=== PATIENT | female | born 1945 | race Caucasian/White ===

== ENCOUNTER 2016-08-23 20:17 | Emergency (ER) | payer MEDICARE ==
[~2016-08-23] VITALS: Ht 157.5 cm; Wt 62.0 kg
[~2016-08-23 20:17] MED LIST: ACETIC ACID2 % OT; ACYCLOVIR400 MG PO; ACYCLOVIR800 MG OR; ACYCLOVIR800 MG PO; AMLODIPINE2.5 MG PO; ARAVA20 MG PO; ATENOLOL25 MG PO; ATENOLOL50 MG PO; AZITHROMYCIN250 MG PO; AZITHROMYCIN500 MG OR; BACLOFEN10 MG PO; BENADRYL 50MG C50 MG PO; BENZONATATE200 MG PO; BIOTIN1 MG; BIOTIN1000 MCG PO; BUSPIRONE HCL7.5 MG PO; BUSPIRONE15 MG PO; BUSPIRONE7.5 MG PO; CAPSAICIN 0.025% EX; CEPHALEXIN500 M1 PO; CHLORTHALID25 MG PO; CIPRO500 MG PO; CIPROFLOXACN500 MG PO; CLARITHROMYC500 MG PO; CLARITIN10 M1 PO; CLEOCIN150 MG PO; CYANOCOBALAM1000 MCG IJ; CYCLOBENZAPR10 MG OR; CYCLOBENZAPR10 MG PO; CYCLOBENZAPR5 MG PO; CYMBALTA60 MG PO; DEPO-MEDROL40 MG/ML IM; DEPO-MEDROL80 MG/ML IM; EC-NAPROSYN375 MG PO; ERYTHROCIN250 MG OR; ERYTHROMYCIN250 MG PO; FERROUS SULF325 M1 PO; FLEXERIL OR; FLEXERIL PO; FLEXERIL10 MG PO; FLEXERIL5 M1 PO; FLONASE NASAL50 MCG; FLONASE NASAL50 MCG NAB; FLORASTOR250 M1 PO; FLUARIX QUADRIV1 IN1 IM; FLUTICASONE50 MCG; FOLIC ACID1 MG PO; FOLIC ACID5 MG PO; GABAPENTIN300 MG OR; GABAPENTIN300 MG PO; HUMIR1; HUMIRA SC; HYDROCHLORO25 MG/TAB PO; HYDROCHLOROT12.5 MG PO; HYDROCHLOROT25 MG PO; HYDROCO/APAP1 TA9 PO; HYDROXYCHLOR200 M1 PO; HYDROXYZ HCL25 MG PO; K-PHO1 PO; KEFLEX500 M1 PO; KEFLEX500 MG PO; KENALOG-4040 MG/ML IM; KETOROLAC60 MG/2 ML IJ; KETOROLAC60 MG/2 ML IM; KLOR-CON M2020 MEQ PO; KLOR-CON20 MEQ PO; LASIX 10 MG10 MG/TA1 PO; LEFLUNOMIDE20 MG PO; LEVAQUIN500 MG PO; LEVAQUIN750 MG PO; LEXAPRO10 MG OR; LEXAPRO10 MG PO; LISINOPRIL10 MG PO; LISINOPRIL20 MG PO; LISINOPRIL30 MG PO; LISINOPRIL5 MG PO; LORTAB 10 PO; LORTAB 1010 MG PO; LORTAB 5/3255 MG PO; LORTAB5 PO; MACROBID100 MG PO; MAG OXIDE400 MG PO; MECLIZINE25 MG PO; MEDDOSEPAK OR; MEDDOSEPAK PO; METFORMIN1000 MG OR; METFORMIN1000 MG PO; METHOTREXATE2.5 MG; METHOTREXATE25 MG/ML IJ; METHYLPRED4 M2 PO; METHYLPRED4 MG PO; MUCINEX600 MG OR; MUCINEX600 MG PO; MUPIROCIN2 % EX; NAPROSYN375 MG PO; NAPROSYN500 MG OR; NAPROSYN500 MG PO; NAPROXEN SOD500 MG PO; NAPROXEN500 MG PO; NEURONTIN600 MG PO; NITROFURANTOIN100 M1 PO; OMEPRAZOLE20 MG PO; OXYBUTYNIN5 M1 PO; OXYBUTYNIN5 MG PO; PERCOCET 5/325M1 TAB OR; PHENERGAN12.5 MG/TA PO; POTASSIUM CHLO20 MEQ PO; PRAVASTATIN10 MG PO; PREDNISONE10 MG PO; PREDNISONE20 MG PO; PREDNISONE5 MG; PREDNISONE5 MG PO; PRILOSEC20 MG PO; PRILOSEC40 MG PO; PROAIR HFA IN; PROMETHAZINE25 M1 OR; RAYOS2 MG PO; ROBITUSSIN AC10 ML OR; SOLU-MEDROL125 MG IM; SULFACET SOD10 % OP; SULFASALAZIN500 M1 PO; TENORMIN50 MG PO; TIZANIDINE2 MG PO; TORADOL30 MG/VIAL IJ; TRAMADOL HCL50 MG PO; TRAZODONE50 MG PO; TREXALL10 MG PO; TRIAMCINOLON0.11 EX; ULTRAM50 M1 OR; ULTRAM50 M1 PO; VALTREX500 MG PO; XELJANZ5 MG PO; ZITHROMAX250 MG PO; ZITHROMAX500 MG PO; ZOLOFT100 MG OR; ZOLOFT100 MG PO; ZOVIRAX200 MG OR; ZOVIRAX400 MG PO; ZOVIRAX5 % EX; ZPAK OR; ZPAK PO; ZYRTEC10 MG PO; [UNRECOGNIZED DRUG - OTHER] EX; [UNRECOGNIZED DRUG - OTHER] SC
[2016-08-23 20:56] LABS: INFLUENZA A NONE DETECTED (NONE DETECT); INFLUENZA B NONE DETECTED (NONE DETECT)
[2016-08-23] MEDS ORDERED: ZPAK PO (21:07)
[2016-08-23 21:18] VITALS: BP 133/80
== END 2016-08-23 21:18 | disposition home or self-care (01) ==
LOC: ED 20:17
PROVIDERS: Emergency Medicine
DX: J02.9 Acute pharyngitis, unspecified (principal); R50.9 Fever, unspecified; R51 Headache

== ENCOUNTER 2016-09-26 20:55 | Emergency (ER) | payer MEDICARE ==
[~2016-09-26] VITALS: Ht 157.5 cm; Wt 63.4 kg
[2016-09-26 22:27] LABS: URINE BILIRUBIN - DIPSTICK NEGATIVE (NEGATIVE); URINE BLOOD DIPSTICK NEGATIVE (NEGATIVE); URINE CLARITY HAZY; URINE COLOR YELLOW; URINE GLUCOSE - DIPSTICK NEGATIVE (NEGATIVE); URINE KETONE NEGATIVE (NEGATIVE); URINE LEUK ESTERASE NEGATIVE (NEGATIVE); URINE NITRITE - DIPSTICK POSITIVE (Negative); URINE PH 5.5 (4.5-8.0); URINE PROTEIN - DIPSTICK NEGATIVE (NEG-TRACE); URINE SPECIFIC GRAVITY >=1.030; URINE UROBILINOGEN - DIPSTICK 0.2 E.U./dL (0.2)
[2016-09-26 22:33] LABS: URINE BACTERIA MODERATE hpf; URINE CALCIUM OXALATE CRYSTALS MODERATE lpf; URINE RBC 0-2 RBC/hpf (0-5); URINE SQUAMOUS EPITHELIAL CELL FEW EPI/hpf (0-FEW)
[2016-09-26] MEDS ORDERED: Levaquin PO (22:52)
[2016-09-26 23:20] VITALS: BP 133/78
== END 2016-09-26 23:20 | disposition home or self-care (01) ==
LOC: ED 20:55
PROVIDERS: Emergency Medicine
DX: N39.0 Urinary tract infection, site not specified (principal); E11.9 Type 2 diabetes mellitus without complications; F32.9 Major depressive disorder, single episode, unspecified; F41.9 Anxiety disorder, unspecified; M06.9 Rheumatoid arthritis, unspecified

== ENCOUNTER 2016-10-27 13:55 | Emergency (ER) | payer MEDICARE ==
[~2016-10-27] VITALS: Ht 157.5 cm; Wt 70.0 kg
[~2016-10-27 13:55] MED LIST changes: +Levaquin PO
[2016-10-27] MEDS ORDERED: NORCO1 TA1 PO (14:29)
[2016-10-27 14:41] VITALS: BP 125/58
[2016-10-27] MEDS ORDERED: MACROBID100 MG PO (14:53)
== END 2016-10-27 15:01 | disposition home or self-care (01) ==
LOC: ED 13:55
DX: G89.29 Other chronic pain (principal); M54.5 Low back pain; E11.9 Type 2 diabetes mellitus without complications; F32.9 Major depressive disorder, single episode, unspecified; F41.9 Anxiety disorder, unspecified; M06.9 Rheumatoid arthritis, unspecified

== ENCOUNTER 2016-12-20 16:16 | Observation (INO) | payer MEDICARE ==
[~2016-12-20] VITALS: Ht 157.5 cm; Wt 52.0 kg
[~2016-12-20 16:16] MED LIST changes: +NORCO1 TA1 PO
[2016-12-20 17:32] LABS: HEMOGLOBIN 9.4 g/dl (12.0-16.0); IMMATURE GRANULOCYTES 0.6 % (0.0-1.0); MEAN CELL VOLUME 81.3 fL CALC (80.0-100.0); MEAN CORPUSCULAR HGB 25.5 pG CALC (26.0-32.0); MEAN CORPUSCULAR HGB CONC 31.3 g/L CALC (32.0-36.0); NEUT# 3.88 thou/uL (2.00-7.15); RED BLOOD COUNT 3.69 mill/uL (4.20-5.60); RED CELL DISTRI WIDTH 17.2 % (11.5-15.5)
[2016-12-20 17:40] LABS: URINE BACTERIA MANY hpf; URINE BILIRUBIN - DIPSTICK NEGATIVE (NEGATIVE); URINE BLOOD DIPSTICK TRACE-INTACT (NEGATIVE); URINE CLARITY CLOUDY; URINE COLOR YELLOW; URINE EPITHELIAL CELLS MANY EPI/hpf (0-FEW); URINE GLUCOSE - DIPSTICK NEGATIVE (NEGATIVE); URINE KETONE NEGATIVE (NEGATIVE); URINE LEUK ESTERASE LARGE (NEGATIVE); URINE NITRITE - DIPSTICK POSITIVE (Negative); URINE PROTEIN - DIPSTICK NEGATIVE (NEG-TRACE); URINE RBC 0-2 RBC/hpf (0-5); URINE UROBILINOGEN - DIPSTICK 0.2 E.U./dL (0.2); URINE WBC 20-50 WBC/hpf (0-5)
[2016-12-20 17:47] LABS: ALBUMIN 3.6 g/dL (3.2-5.0); ALKALINE PHOSPHATASE 62 u/l (38-126); ANION GAP 12 (6-22 (CALC)); BILIRUBIN, TOTAL 0.4 mg/dL (0.0-1.4); BUN 10 mg/dL (8-23); BUN/CREATININE RATIO 11 (12-20 (CALC)); CALCIUM 9.2 mg/dL (8.4-10.2); CARBON DIOXIDE 28 mmol/l (22-30); CHLORIDE 101 mmol/l (95-108); CREATININE 0.9 mg/dL (0.5-1.0); GFR > 60 ML/MIN (>=60 (CALC)); GFR FOR AFR.AMER. > 60 ML/MIN (>=60 (CALC)); GLUCOSE 100 mg/dL (82-115); LIPASE 33 u/l (23-300); POTASSIUM 3.9 mmol/l (3.5-5.1); SGOT/AST 19 u/l (9-36); SGPT/ALT 31 u/l (11-66); SODIUM 137 mmol/l (137-146)
[2016-12-20] MEDS ORDERED: RHEUMATREX2.5 M1 PO (18:40)
[2016-12-20] MEDS ORDERED: BACLOFEN20 MG PO (18:41)
[2016-12-20] MEDS ORDERED: ZESTRIL5 M1 PO (18:42)
[2016-12-20] MEDS ORDERED: ACYCLOVIR400 MG PO (18:43)
[2016-12-20] MEDS ORDERED: BUSPAR5 MG PO (18:44)
[2016-12-20] MEDS ORDERED: FOLIC ACID1 MG PO (18:52)
[2016-12-20] MEDS ORDERED: SERTRALINE50 MG PO (18:53)
[2016-12-20] MEDS ORDERED: IMODIUM2 MG PO (18:54)
[2016-12-20] MEDS ORDERED: TRAZODONE50 MG PO (18:54)
[2016-12-20] MEDS ORDERED: PROAIR HFA108 MCG/AC (18:55)
[2016-12-20] MEDS ORDERED: FLONASE AL50 MCG/ACT (18:55)
[2016-12-20] MEDS ORDERED: CLARITIN10 M1 PO (18:56)
[2016-12-20] MEDS ORDERED: DULCOLAX5 MG PO (18:56)
[2016-12-20 20:30] VITALS: BP 156/68
[2016-12-21 03:55] VITALS: BP 125/61
[2016-12-21 06:02] LABS: HEMATOCRIT 28.9 % (37.0-47.0); HEMOGLOBIN 8.8 g/dl (12.0-16.0); MEAN CELL VOLUME 82.1 fL CALC (80.0-100.0); MEAN CORPUSCULAR HGB CONC 30.4 g/L CALC (32.0-36.0); RED BLOOD COUNT 3.52 mill/uL (4.20-5.60); RED CELL DISTRI WIDTH 17.2 % (11.5-15.5)
[2016-12-21 06:21] LABS: ANION GAP 11 (6-22 (CALC)); BUN 9 mg/dL (8-23); BUN/CREATININE RATIO 11 (12-20 (CALC)); CALCIUM 8.7 mg/dL (8.4-10.2); CARBON DIOXIDE 27 mmol/l (22-30); CHLORIDE 105 mmol/l (95-108); CREATININE 0.8 mg/dL (0.5-1.0); GFR > 60 ML/MIN (>=60 (CALC)); GFR FOR AFR.AMER. > 60 ML/MIN (>=60 (CALC)); GLUCOSE 71 mg/dL (82-115); POTASSIUM 3.8 mmol/l (3.5-5.1); SODIUM 138 mmol/l (137-146)
[2016-12-21 07:46] VITALS: BP 144/71
[2016-12-21] MEDS ORDERED: QUESTRAN4 GM/DOSE PO (09:44)
[2016-12-21] MEDS ORDERED: ESTRIOL VA (09:51)
[2016-12-21] MEDS ORDERED: MACROBID100 MG PO (09:51)
[2016-12-21] MEDS ORDERED: NAPROXEN500 MG PO (09:52)
[2016-12-21 10:04] VITALS: BP 144/71
== END 2016-12-21 10:24 | disposition home or self-care (01) ==
LOC: ED 16:16 → ED-I 18:28 → ED 18:45 → MS2 18:46
PROVIDERS: Family Medicine; ADMIT Internal Medicine; ATTEND Internal Medicine
DX: N39.0 Urinary tract infection, site not specified (principal); E11.9 Type 2 diabetes mellitus without complications; F32.9 Major depressive disorder, single episode, unspecified; F41.9 Anxiety disorder, unspecified; M06.9 Rheumatoid arthritis, unspecified; B96.20 Unspecified Escherichia coli [E. coli] as the cause of diseases classified elsewhere; R32 Unspecified urinary incontinence; I10 Essential (primary) hypertension; K21.9 Gastro-esophageal reflux disease without esophagitis; K52.9 Noninfective gastroenteritis and colitis, unspecified; R19.04 Left lower quadrant abdominal swelling, mass and lump; M15.9 Polyosteoarthritis, unspecified; R42 Dizziness and giddiness; Z16.12 Extended spectrum beta lactamase (ESBL) resistance; Z87.442 Personal history of urinary calculi; Z87.440 Personal history of urinary (tract) infections; Z88.0 Allergy status to penicillin
CPT/HCPCS: G0378

== ENCOUNTER 2017-01-22 01:21 | Emergency (ER) | payer MEDICARE ==
[~2017-01-22] VITALS: Ht 157.5 cm; Wt 52.8 kg
[~2017-01-22 01:21] MED LIST changes: +BACLOFEN20 MG PO; +BUSPAR5 MG PO; +DULCOLAX5 MG PO; +ESTRIOL VA; +FLONASE AL50 MCG/ACT; +IMODIUM2 MG PO; +PROAIR HFA108 MCG/AC; +QUESTRAN4 GM/DOSE PO; +RHEUMATREX2.5 M1 PO; +SERTRALINE50 MG PO; +ZESTRIL5 M1 PO
[2017-01-22] MEDS ORDERED: NAPROXEN500 MG PO (01:48)
[2017-01-22] MEDS ORDERED: TRAZODONE50 MG PO (01:48)
[2017-01-22] MEDS ORDERED: BUSPAR5 MG PO (01:48)
[2017-01-22 01:55] VITALS: BP 161/81
== END 2017-01-22 01:58 | disposition home or self-care (01) ==
LOC: ED 01:21
DX: Z76.0 Encounter for issue of repeat prescription (principal); E11.9 Type 2 diabetes mellitus without complications; M06.9 Rheumatoid arthritis, unspecified; F32.9 Major depressive disorder, single episode, unspecified; F41.9 Anxiety disorder, unspecified; Z87.442 Personal history of urinary calculi

== ENCOUNTER 2017-02-02 13:10 | Day surgery (SDC) | payer MEDICARE ==
[~2017-02-02] VITALS: Ht 157.5 cm; Wt 49.9 kg
[~2017-02-02 13:10] MED LIST changes: +[UNRECOGNIZED DRUG - OTHER] PO
[2017-02-02 15:32] VITALS: BP 207/90
== END 2017-02-02 15:56 | disposition home or self-care (01) ==
LOC: ENDO 13:10 → ORM 15:30 → PO 15:30 → ENDO 15:30 → ORM 16:15
PROVIDERS: ATTEND Internal Medicine Gastroenterology
DX: R13.10 Dysphagia, unspecified (principal); Z53.8 Procedure and treatment not carried out for other reasons

== ENCOUNTER 2017-03-23 00:48 | Emergency (ER) | payer MEDICARE ==
[~2017-03-23] VITALS: Ht 157.5 cm; Wt 51.8 kg
[2017-03-23 03:49] VITALS: BP 175/77
== END 2017-03-23 03:50 | disposition home or self-care (01) ==
LOC: ED 00:48
DX: M06.9 Rheumatoid arthritis, unspecified (principal); M25.562 Pain in left knee; M25.561 Pain in right knee; I10 Essential (primary) hypertension

== ENCOUNTER 2017-09-13 13:36 | Emergency (ER) | payer MEDICARE ==
[~2017-09-13] VITALS: Ht 157.5 cm; Wt 60.0 kg
[~2017-09-13 13:36] MED LIST changes: +BP MED; +ROCEPHIN 1 GM1 GM IV
[2017-09-13 14:36] LABS: URINE BLOOD DIPSTICK NEGATIVE (NEGATIVE); URINE COLOR YELLOW; URINE GLUCOSE - DIPSTICK NEGATIVE (NEGATIVE); URINE KETONE TRACE mg/dL (NEGATIVE); URINE LEUK ESTERASE TRACE (NEGATIVE); URINE NITRITE - DIPSTICK NEGATIVE (Negative); URINE PH 5.5 (4.5-8.0); URINE PROTEIN - DIPSTICK NEGATIVE (NEG-TRACE); URINE SPECIFIC GRAVITY 1.025; URINE UROBILINOGEN - DIPSTICK 0.2 E.U./dL (0.2)
[2017-09-13 14:39] LABS: HEMOGLOBIN 11.6 g/dl (12.0-16.0); IMMATURE GRANULOCYTES 0.8 % (0.0-1.0); MEAN CELL VOLUME 86.3 fL CALC (80.0-100.0); MEAN CORPUSCULAR HGB 27.8 pG CALC (26.0-32.0); MEAN CORPUSCULAR HGB CONC 32.2 g/L CALC (32.0-36.0); NEUT# 10.22 thou/uL (2.00-7.15); RED BLOOD COUNT 4.17 mill/uL (4.20-5.60); RED CELL DISTRI WIDTH 15.5 % (11.5-15.5)
[2017-09-13 14:39] LABS: URINE BILIRUBIN - DIPSTICK NEGATIVE (NEGATIVE); URINE CLARITY CLEAR
[2017-09-13] MEDS ORDERED: BUSPIRONE5 MG PO (14:45)
[2017-09-13] MEDS ORDERED: MOTRIN200 MG PO (14:46)
[2017-09-13] MEDS ORDERED: METFORMIN500 MG PO (14:47)
[2017-09-13] MEDS ORDERED: FEROSUL PO (14:48)
[2017-09-13] MEDS ORDERED: NIFEDIPINE60 MG PO (14:49)
[2017-09-13] MEDS ORDERED: ACYCLOVIR400 MG PO (14:50)
[2017-09-13] MEDS ORDERED: TRAZODONE50 MG PO (14:52)
[2017-09-13] MEDS ORDERED: FLORASTOR250 M1 PO (14:54)
[2017-09-13] MEDS ORDERED: ASPIRIN81 MG PO (14:55)
[2017-09-13] MEDS ORDERED: VENTOLIN HFA IN (14:56)
[2017-09-13 14:57] LABS: ALBUMIN 3.9 g/dL (3.2-5.0); ALKALINE PHOSPHATASE 72 u/l (38-126); ANION GAP 19 (6-22 (CALC)); BILIRUBIN, TOTAL 0.3 mg/dL (0.0-1.4); BUN 23 mg/dL (8-23); BUN/CREATININE RATIO 24 (12-20 (CALC)); CARBON DIOXIDE 26 mmol/l (22-30); CHLORIDE 101 mmol/l (95-108); GFR 55 ML/MIN (>=60 (CALC)); GFR FOR AFR.AMER. > 60 ML/MIN (>=60 (CALC)); LIPASE 43 u/l (23-300); SGOT/AST 17 u/l (9-36); SGPT/ALT 34 u/l (11-66); SODIUM 142 mmol/l (137-146); TOTAL PROTEIN 6.5 g/dL (6.3-8.2)
[2017-09-13 15:14] LABS: POTASSIUM 4.4 mmol/l (3.5-5.1)
[2017-09-13 15:31] VITALS: BP 125/56
== END 2017-09-13 15:31 | disposition home or self-care (01) ==
LOC: ED 13:36
PROVIDERS: Family Medicine
DX: R10.31 Right lower quadrant pain (principal); R19.7 Diarrhea, unspecified; R11.0 Nausea; M06.9 Rheumatoid arthritis, unspecified; E11.9 Type 2 diabetes mellitus without complications; Z79.84 Long term (current) use of oral hypoglycemic drugs; M54.9 Dorsalgia, unspecified

== ENCOUNTER 2018-01-12 23:18 | Observation (INO) | payer MEDICARE ==
[~2018-01-12] VITALS: Ht 157.5 cm; Wt 52.9 kg
[~2018-01-12 23:18] MED LIST changes: +ASPIRIN81 MG PO; +BUSPIRONE5 MG PO; +FEROSUL PO; +METFORMIN500 MG PO; +MOTRIN200 MG PO; +NIFEDIPINE60 MG PO; +VENTOLIN HFA IN
[2018-01-13] VITALS (8 sets, daily range): BP systolic 110–175; BP diastolic 49–80
--- NOTE | 2018-01-13 00:10 | NUR ---
TO CT VIA STRETCHER
[2018-01-13 00:15] LABS: HEMATOCRIT 34.3 % (37.0-47.0); HEMOGLOBIN 11.5 g/dl (12.0-16.0); IMMATURE GRANULOCYTES 0.4 % (0.0-5.0); MEAN CELL VOLUME 89.1 fL CALC (80.0-100.0); MEAN CORPUSCULAR HGB 29.9 pG CALC (26.0-32.0); MEAN CORPUSCULAR HGB CONC 33.5 g/L CALC (32.0-36.0); NEUT# 6.25 thou/uL (2.00-7.15); RED BLOOD COUNT 3.85 mill/uL (4.20-5.60); RED CELL DISTRI WIDTH 16.4 % (11.5-15.5)
--- NOTE | 2018-01-13 00:29 | NUR ---
RETURNED FROM CT.
[2018-01-13 00:30] LABS: ALBUMIN 4.2 g/dL (3.2-5.0); ALKALINE PHOSPHATASE 66 u/l (38-126); ANION GAP 15 (6-22 (CALC)); BILIRUBIN, TOTAL 0.5 mg/dL (0.0-1.4); BUN 16 mg/dL (8-23); BUN/CREATININE RATIO 16 (12-20 (CALC)); CARBON DIOXIDE 27 mmol/l (22-30); CHLORIDE 98 mmol/l (95-108); GFR 55 ML/MIN (>=60 (CALC)); GFR FOR AFR.AMER. > 60 ML/MIN (>=60 (CALC)); SGOT/AST 29 u/l (9-36); SODIUM 135 mmol/l (137-146); TOTAL PROTEIN 6.8 g/dL (6.3-8.2)
[2018-01-13 00:42] LABS: MYOGLOBIN 97 ng/mL (0 - 62)
[2018-01-13 02:08] LABS: URINE BILIRUBIN - DIPSTICK NEGATIVE (NEGATIVE); URINE BLOOD DIPSTICK TRACE-LYSED (NEGATIVE); URINE COLOR YELLOW; URINE GLUCOSE - DIPSTICK NEGATIVE (NEGATIVE); URINE KETONE NEGATIVE (NEGATIVE); URINE LEUK ESTERASE NEGATIVE (NEGATIVE); URINE NITRITE - DIPSTICK NEGATIVE (Negative); URINE PH 6.5 (4.5-8.0); URINE PROTEIN - DIPSTICK NEGATIVE (NEG-TRACE); URINE UROBILINOGEN - DIPSTICK 0.2 E.U./dL (0.2)
[2018-01-13 02:10] LABS: URINE CLARITY CLEAR
--- NOTE | 2018-01-13 02:15 | NUR ---
PT VOIDED ON BEDPAN...OVERFLOWED IT. LINENS CHANGED.
--- NOTE | 2018-01-13 02:30 | NUR ---
PT RESTING BUT FLOPPING LEGS AROUND. STATES BACK HURTS AND HAS BEEN HURTING SINCE FALLING...BUT EARLIER WAS TOLD THAT SHE WAS FALLING BECAUSE OF THE PAIN IN HER BACK. PT UNABLE TO VERIFY MED LIST. PT REMAINS ALERT/ORIENTED. LAW...6 MM BILAT. GRASP EQUAL STRONG. VSS.
--- NOTE | 2018-01-13 02:45 | NUR ---
TO FLOOR VIA STRETCHER. ON MONITOR. PT ASSISTED TO BED...AMBULATES.
--- NOTE | 2018-01-13 02:50 | NUR ---
PT TO ROOM 291 VIA STRETCHER ACCOMPANIED BY ER NURSE. ON STRETCHER PT HAS LEGS UP IN AIR AND IS UNABLE TO NOT MOVE AT ANY GIVEN TIME. ASKED PT IF SHE COULD AMBULATE TO BED SHE STATED NO. QUESTIONED PT AGAIN AND STATED THAT HER LEGS ARE MOVING QUITE WELL. PT SAT UP ON SIDE OF STRETCHER THEN STOOD UP AND AMBULATED TO BED WITH MINIMAL ASSISTANCE. ONCE IN BED PT CONTINUES TO FLING LEGS ALL AROUND BED. ADMISSION ASSESSMENT COMPLETED AT THIS TIME. PT IS A POOR HISOTIRAN WHEN ASKED SHE ANSWERS THEN CHANGES ANSWERS MULITPLE TIMES. IV PATENT X1. PUPILS ARE 6MM BUT EQUAL AND REACTIVE. PT ASSISTED TO BSC AND WHILE ON BSC PT CONTINNUES TO LIFT LEGS AND MOVE ALL AROUND. PT ASSISTED BACK TO BED. BED ALARM IN PLACE FOR PT SAFETY. INSTRUCTED PT TO USE CALL LIGHT BEFORE GETTING OUT OF BED. CALL LIGHT IN REACH. WILL CONTINUE TO MONITOR.
[2018-01-13 02:51] LABS: BARBITURATES NEGATIVE (NEGATIVE); COCAINE NEGATIVE (NEGATIVE); METHADONE NEGATIVE (NEGATIVE); OXCYCODONE NEGATIVE (NEGATIVE); TETRAHYDROCANNABIONOL NEGATIVE (NEGATIVE); TRICYLIC ANTIDEPRESSANTS NEGATIVE (NEGATIVE)
--- NOTE | 2018-01-13 03:40 | NUR ---
SPOKE TO DR LARIOS DUE TO PT NON STOP COUGHING. PT NOW STATES THAT SHE TAKES PROAIR AT HOME FOR ASTHMA. PT STATES "IM CHOKING" EXPLAINED TO PT THAT SHE IS NOT CHOKING DUE TO THE ABILITY TO SPEAK. O2 SAT REMAINS AT 97% ON RA. LUNGS REMAIN CLEAR. ORDER OBTAINED FOR NEB TREATMENT. RT NOTIFIED
--- NOTE | 2018-01-13 04:04 | NUR ---
RT IN FOR NEB TREATMENT. PT NOW WAS SLUGGISH TO WAKE. PT AROUSES TO TOUCH.
--- NOTE | 2018-01-13 04:20 | NUR ---
PT RECEIVED ISAAC TREATMENT FROM RT. CHECKED ACCUCHECK DUE TO HAVING TO BE AWAKEN BY TOUCH RATHER THAN BY VERBAL. ACCUCHECK 100. PT REMAINS ALERT AND ORIENTED X3. ONCE AWAKE PT CONTINUES TO MOVE FEET AND LEG CONSTANTLY.
--- NOTE | 2018-01-13 05:29 | NUR ---
PHONED DR LARIOS REFERENCE PT NOT WAKING UP WELL AND THEN NOW WITH SCREAMING AND CRYING COMPLAINTS OF A HEADACHE. NEW ORDERS RECEIVED. WILL MEDICATE PER MD ORDERS.
--- NOTE | 2018-01-13 05:52 | NUR ---
PT MEDICATED PER MAR AND MD ORDERS. PT ASSISTED TO BSC. PT CONTINUES TO MOAN VERY LOUDLY. EXPLAINED THAT WE HAVE OTHER PATIENTS IN THE HOSPITAL THAT SHE HAS BEEN MEDICATED AND NEEDS TO ALLOW THE MEDICATION TO TAKE EFFECT. PT THEN COMPLAINS THAT SHE IS NAUSEATED. EMESIS BAG PROVIDED. NO EMESIS AT THIS TIME. PT ASSISTED BACK TO BED 2 PERSON ASSIST DUE TO PT TELLING THIS WIRTER SHE WOULD NOT BE ABLE4 TO STAND. PT STOOD ON OWN. PT REMAINS ALERT AND ORIENTED X3. NO CHANGES NEUROLOGICALLY. PT CONTINUES TO THROW LEGS AROUND IN BED AND CONTINUES TO EXPOSE SELF. INSTRUCTED PT AGAIN THAT THERE ARE OTHERS IN THE HOSPITAL AND SHE SHOULD REMAINED COVERED UP AND NOT EXPOSING SELF. CALL LIGHT IN REACH. BED ALARM ON. WILL CONTINUE TO MONITOR.
--- NOTE | 2018-01-13 06:20 | NUR ---
PT NOW WITH COMPLAINTS OF ABD PAIN. DEIES N/V AT THIS TIME. PT ASSISTED TO BSC TO HAVE BM. UNABLE TO HAVE BM. WILL CONTINUE TO MONITOR.
--- NOTE | 2018-01-13 06:25 | NUR ---
PT CONTINUES TO ROLL AROUND IN BED AND NOW STATING THAT ABDOMINAL PAIN IS WORSE. MADE PT NPO FOR BREAKFAST UNTIL EVALUATED BY PROVIDER. PT NOW STATES THAT SHE DID NOT HAVE A BM YESTERDAY IT WAS A FEW DAYS AGO. EXPLAINED TO PT THAT DURING HER ADMISSION ASSESSMENT SHE STATED SHE HAD A NORMAL BM YESTERDAY. EXPLAINED THAT HER STORIES HAVE BEEN INCONSISTENT SINCE ARRIVAL TO ER. PT WAS DISGRUNTLED WITH NURSE AND LAID DOWN IN BED. WILL CONTINUE TO MONITOR.
--- NOTE | 2018-01-13 07:25 | NUR ---
PT RESTING IN BED, NO SIGNS OF DISTRESS NOTED, RESP EVEN AND UNLABORED, PT ALERT AND ORIENTED X3. RETAIL PERSONAL BANKER AT BEDSIDE WITH CORRECTIONS CADET, ORTHSTATIC BP'S OBTAINED. DISCUSSED POC, PT IN AGREEMENT. 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 PT ALSO C/O HEADACHE, WILL NOTIFY PROVIDER. BED ALARM FOR SAFETY, CALL LIGHT IN REACH,CONTINUE TO MONITOR.
--- NOTE | 2018-01-13 09:30 | NUR ---
PHOTOS OBTAINED OF BRUISING TO THE BACK OF HER L ARM, PT HAS BRUISING TO RFA AND GABRIELLE. SKIN TEAR TO RFA, PHOTOS OBTAINED, DRESSING APPLIED. PT TOLERATED WELL. PT STATES SHE DOES NOT REMEMEBER HER LAST BP, WILL NOTIFY FUEL HANDLER. CALL LIGHT IN REACH, BED ALARM X1, CONTINUE TO MONITOR.
[2018-01-13] MEDS ORDERED: PROVENTIL0.083 % IN (09:31)
[2018-01-13] MEDS ORDERED: PROAIR HFA IN (09:32)
[2018-01-13] MEDS ORDERED: NIFEDICAL XL60 MG PO (09:34)
--- NOTE | 2018-01-13 12:00 | NUR ---
PT OFFERED SOFT DIET TRAY, PT UNABLE TO EAT, PT KEPT HER SWEET TEA. BED ALARM X1, CONTINUE TO MONITOR.
--- NOTE | 2018-01-13 12:30 | NUR ---
PT MEDICATED PER MAR WITH MOM AND MIRALAX, WILL AWAIT RESULTS OF BM. CALL LIGHT IN REACH, BED ALARM X1, CONTINUE TO MONITOR.
--- NOTE | 2018-01-13 13:30 | NUR ---
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 SHE NOTED THAT THERE WAS AQUAPHOR ON THE FLOOR IN THE BATHROOM AT HOME, AND NOTED BLOOD ON THE FLOOR AND SINK. PT DID STATE SHE FELL IN THE BATHROOM AT HOME, ASSISTANT MERCHANDISE MANAGER NOTIFIED, LARGE BIN GIVEN TO ASSISTANT MERCHANDISE MANAGER TO RECONCILE. ORDERS FOR CASE MANAGEMENT CONSULT PLACED.
--- NOTE | 2018-01-13 14:35 | NUR ---
PT UP TO BSC FOR BM, PT HAD A VERY LARGE BM. CROP PRODUCTION ADVISOR AT BEDSIDE, CALL LIGHT IN REACH, BED ALARM X1, CONTINUE TO MONITOR.
--- NOTE | 2018-01-13 14:48 | NUR ---
PT RESTING IN BED WITH EYES CLOSED, NO SIGNS OF DISTRESS NOTED, RESP EVEN AND UNLABORED. CALL LIGHT IN REACH,CONTINUE TO MONITOR.
[2018-01-13 17:04] LABS: INFLUENZA A NONE DETECTED (NONE DETECT); INFLUENZA B NONE DETECTED (NONE DETECT)
--- NOTE | 2018-01-13 19:00 | NUR ---
PT ALERT AND ORIENTED AND LYING IN BED. NO VOICED COMPLAINTS AT THIS TIME. NO APPARENT ACUTE DISTRESS NOTED. WILL CONTINUE TO MONITOR.
--- NOTE | 2018-01-13 23:00 | NUR ---
PT C/O HEADACHE. MEDICATED WITH TYLENOL 500 MG PO. WILL CONTINUE TO MONITOR
--- NOTE | 2018-01-14 | NUR ---
ON EVALUATION OF INTERVENTION, PT REPORTS HEADACHE IS GONE.
[2018-01-14 04:30] VITALS: BP 171/86
--- NOTE | 2018-01-14 05:00 | NUR ---
ASSISTED PT TO BSC. PT VOIDED 400 CC YELLOW URINE.
[2018-01-14 05:29] LABS: HEMATOCRIT 35.6 % (37.0-47.0); HEMOGLOBIN 12.1 g/dl (12.0-16.0); MEAN CELL VOLUME 88.3 fL CALC (80.0-100.0); RED BLOOD COUNT 4.03 mill/uL (4.20-5.60); RED CELL DISTRI WIDTH 15.9 % (11.5-15.5)
[2018-01-14 05:49] LABS: ANION GAP 10 (6-22 (CALC)); BUN 7 mg/dL (8-23); BUN/CREATININE RATIO 12 (12-20 (CALC)); CALCULATED LDLCHOLESTEROL 93 mg/dL (62-129 (CALC)); CARBON DIOXIDE 26 mmol/l (22-30); CHLORIDE 105 mmol/l (95-108); CHOLESTEROL HDL RATIO 4.2 (<4.4 (CALC)); CREATININE 0.6 mg/dL (0.5-1.0); GFR > 60 ML/MIN (>=60 (CALC)); GFR FOR AFR.AMER. > 60 ML/MIN (>=60 (CALC)); HDL CHOLESTEROL 40 mg/dL (>=40); POTASSIUM 3.8 mmol/l (3.5-5.1); SODIUM 137 mmol/l (137-146); TOTAL CHOLESTEROL 165 mg/dl (0-199); TOTAL TRIGLYCERIDES 163 mg/dl (30-149); VLDL CHOLESTROL 33 mg/dl (0-48 (CALC))
--- NOTE | 2018-01-14 07:10 | NUR ---
PT REPORT RECIEVED FROM DAVID WILSON. PT SLEEPING IN BED. NO S/S OF DISTRESS NOTED. SAFETY PRECAUTIONS IN PLACE. CALL LIGHT IN REACH. WILL CONTINUE TO MONITOR.
--- NOTE | 2018-01-14 08:27 | NUR ---
PHYSICAL THERAPY IN WITH PT.
[2018-01-14] MEDS ORDERED: PREDNISONE10 MG PO (08:56)
[2018-01-14] MEDS ORDERED: ASPIRIN 81 LOW81 MG PO (08:57)
[2018-01-14] MEDS ORDERED: SENOKOT S1 TAB PO (08:57)
[2018-01-14 08:58] VITALS: BP 170/80
--- NOTE | 2018-01-14 08:58 | NUR ---
PT ASSESSMENT COMPLETE. PT A/O X3. SPEECH IS CLEAR. RESP EVEN AND UNLABORED. LUNG SOUNDS CLEAR. TELE IN PLACE. ABDOMEN SOFT. BOWEL SOUNDS ACTIVE X4. STRONG RADIAL AND PEDAL PULSES. #18 RAC NS @125. SITE APPEARS HEALTHY. SKIN TEAR TO RFA NOTED. KERLIX DRESSING IN PLACE, CDI. DRESSING REMOVED. BLOODY DRAINAGE NOTED. CLEANED, WITH TELFA AND KERLIX APPLIED. BSC NEAR BED. PLAN OF CARE DISCUSSED. SAFETY PRECAUTIONS IN PLACE. CALL LIGHT IN REACH. WILL CONTINUE TO MONITOR.
[2018-01-14] MEDS ORDERED: B-12100 MCG PO (08:59)
[2018-01-14] MEDS ORDERED: COLLAGE2 (09:00)
[2018-01-14] MEDS ORDERED: RHEUMATREX2.5 M1 PO (09:06)
[2018-01-14] MEDS ORDERED: ACETAMIN500 M2 PO (09:08)
[2018-01-14] MEDS ORDERED: BIOTIN5 MG PO (09:10)
[2018-01-14] MEDS ORDERED: SERTRALINE HCL100 MG PO (09:10)
[2018-01-14] MEDS ORDERED: FLORASTOR250 M1 PO (09:12)
[2018-01-14] MEDS ORDERED: ZOFRAN ODT4 MG PO (09:13)
[2018-01-14] MEDS ORDERED: METFORMIN500 M1 PO (09:13)
[2018-01-14] MEDS ORDERED: FOLIC ACI1 PO (09:14)
[2018-01-14] MEDS ORDERED: TRAZODONE HCL100 MG PO (09:15)
[2018-01-14] MEDS ORDERED: TRAZODONE50 MG PO (09:20)
[2018-01-14] MEDS ORDERED: IBUPROFEN 200200 MG PO (09:21)
[2018-01-14] MEDS ORDERED: OXYBUTYNIN5 M1 PO (09:22)
[2018-01-14] MEDS ORDERED: BUSPIRONE HCL30 MG PO (09:23)
[2018-01-14] MEDS ORDERED: PREDNISONE5 M2 PO (09:23)
[2018-01-14] MEDS ORDERED: MULTIVITAMI9 PO (09:24)
[2018-01-14] MEDS ORDERED: ALL DAY10 MG PO (09:24)
[2018-01-14] MEDS ORDERED: ZOVIRAX800 MG PO (09:25)
[2018-01-14] MEDS ORDERED: FERR SULFATE325 MG PO (09:25)
[2018-01-14] MEDS ORDERED: BACLOFEN20 MG (09:27)
--- NOTE | 2018-01-14 10:48 | NUR ---
ADAN ARENAS IN TO SEE PT
[2018-01-14 11:36] VITALS: BP 184/82
--- NOTE | 2018-01-14 12:00 | NUR ---
PT SITTING UPRIGHT IN BED WATCHING TELEVISION. NO S/S OF DISTRESS. PT DENIES ANY NEEDS AT THIS TIME. CALL LIGHT IN REACH. WILL CONTINUE TO MONITOR.
--- NOTE | 2018-01-14 13:40 | NUR ---
PT RESTING IN SEMI FOWLERS POSITION;DISCHARGE PLAN DISCUSSED AND PT VERBALIZES UNDERSTANDING;IV SITE REMOVED WITH CATHETER INTACT;PT ENCOURAGED TO FOLLOW UP WITH PCP;PT DENIES ANY ADDITIONAL NEEDS AT THIS TIME;WHEELCHAIR TO BE PROVIDED FOR DISCHARGE;AWAITING FAMILY TO ARRIVE FOR TRANSPORTATION HOME.
--- NOTE | 2018-01-14 14:06 | NUR ---
Discharge instructions given. Patient verbalizes understanding of same. Discharged in stable condition via Wheelchair to Home with family. All belongings sent with pt. Pt was discharge via wheelchair accompanied by doris palomino and family in stable condition.
== END 2018-01-14 14:06 | disposition home health service (06) ==
LOC: ED 23:18 → ED-I 01-13 01:42 → ED 01-13 02:15 → MS2 01-13 02:16
PROVIDERS: Emergency Medicine; Nurse Practitioner Family; ADMIT Internal Medicine; ATTEND Internal Medicine
DX: R55 Syncope and collapse (principal); E11.9 Type 2 diabetes mellitus without complications; G93.40 Encephalopathy, unspecified; M06.9 Rheumatoid arthritis, unspecified; J45.909 Unspecified asthma, uncomplicated; F41.9 Anxiety disorder, unspecified; F32.9 Major depressive disorder, single episode, unspecified; I10 Essential (primary) hypertension; D64.9 Anemia, unspecified; Z79.84 Long term (current) use of oral hypoglycemic drugs; Z91.81 History of falling; Z60.2 Problems related to living alone; Z87.440 Personal history of urinary (tract) infections

== ENCOUNTER → 2018-05-29 | Outpatient (REF) | payer MEDICARE ==
[~2018-05-29] MED LIST changes: +ACETAMIN500 M2 PO; +ALL DAY10 MG PO; +ASPIRIN 81 LOW81 MG PO; +B-12100 MCG PO; +BACLOFEN20 MG; +BIOTIN5 MG PO; +BUSPIRONE HCL30 MG PO; +COLLAGE2; +FERR SULFATE325 MG PO; +FOLIC ACI1 PO; +IBUPROFEN 200200 MG PO; +METFORMIN500 M1 PO; +MULTIVITAMI9 PO; +NIFEDICAL XL60 MG PO; +PREDNISONE5 M2 PO; +PROVENTIL0.083 % IN; +SENOKOT S1 TAB PO; +SERTRALINE HCL100 MG PO; +TRAZODONE HCL100 MG PO; +ZOFRAN ODT4 MG PO; +ZOVIRAX800 MG PO
[2018-05-29 10:34] LABS: HEMATOCRIT 36.9 % (37.0-47.0); HEMOGLOBIN 12.3 g/dl (12.0-16.0); IMMATURE GRANULOCYTES 1.2 % (0.0-5.0); MEAN CELL VOLUME 88.1 fL CALC (80.0-100.0); MEAN CORPUSCULAR HGB 29.4 pG CALC (26.0-32.0); MEAN CORPUSCULAR HGB CONC 33.3 g/L CALC (32.0-36.0); NEUT# 4.3 thou/uL (2.00-7.15); RED BLOOD COUNT 4.19 mill/uL (4.20-5.60); RED CELL DISTRI WIDTH 14.7 % (11.5-15.5)
[2018-05-29 11:13] LABS: C-REACTIVE PROTEIN 0.7 mg/dL (0-0.9)
[2018-05-29 11:14] LABS: ALBUMIN 4.2 g/dL (3.2-5.0); ALKALINE PHOSPHATASE 64 u/l (38-126); ANION GAP 14 (6-22 (CALC)); BILIRUBIN, TOTAL 0.3 mg/dL (0.0-1.4); BUN 19 mg/dL (8-23); BUN/CREATININE RATIO 20 (12-20 (CALC)); CALCULATED LDLCHOLESTEROL 103 mg/dL (62-129 (CALC)); CARBON DIOXIDE 28 mmol/l (22-30); CHLORIDE 106 mmol/l (95-108); CHOLESTEROL HDL RATIO 4.1 (<4.4 (CALC)); GFR 55 ML/MIN (>=60 (CALC)); GFR FOR AFR.AMER. > 60 ML/MIN (>=60 (CALC)); HDL CHOLESTEROL 46 mg/dL (>=40); POTASSIUM 3.9 mmol/l (3.5-5.1); SGOT/AST 20 u/l (9-36); SODIUM 144 mmol/l (137-146); TOTAL CHOLESTEROL 189 mg/dl (0-199); TOTAL PROTEIN 6.6 g/dL (6.3-8.2); TOTAL TRIGLYCERIDES 196 mg/dl (30-149); VLDL CHOLESTROL 39 mg/dl (0-48 (CALC))
== END | disposition home or self-care (01) ==
LOC: LAB 09:54
PROVIDERS: Physician Assistant Medical; ATTEND Internal Medicine Rheumatology
DX: M05.79 Rheumatoid arthritis with rheumatoid factor of multiple sites without organ or systems involvement (principal); Z79.899 Other long term (current) drug therapy; E11.42 Type 2 diabetes mellitus with diabetic polyneuropathy; I10 Essential (primary) hypertension; E53.8 Deficiency of other specified B group vitamins; E55.9 Vitamin D deficiency, unspecified

== ENCOUNTER 2020-02-15 18:10 | Emergency (ER) | payer MEDICARE ==
[~2020-02-15] VITALS: Ht 157.5 cm; Wt 64.0 kg
[2020-02-15] MEDS ORDERED: METHOTREXATE2.5 MG PO (18:51)
[2020-02-15] MEDS ORDERED: DITROPAN XL5 MG PO (18:52)
[2020-02-15] MEDS ORDERED: FLONASE AL50 MCG/ACT IN (18:53)
[2020-02-15 20:00] VITALS: BP 152/85
== END 2020-02-15 20:00 | disposition home or self-care (01) ==
LOC: ED 18:10
DX: S51.811A Laceration without foreign body of right forearm, initial encounter (principal); I10 Essential (primary) hypertension; E11.9 Type 2 diabetes mellitus without complications; M06.9 Rheumatoid arthritis, unspecified; J45.909 Unspecified asthma, uncomplicated; F41.9 Anxiety disorder, unspecified; F32.9 Major depressive disorder, single episode, unspecified; W18.30XA Fall on same level, unspecified, initial encounter; Y92.007 Garden or yard of unspecified non-institutional (private) residence as the place of occurrence of the external cause; Z79.84 Long term (current) use of oral hypoglycemic drugs

== ENCOUNTER 2020-09-13 19:42 | Emergency (ER) | payer MEDICARE ==
[~2020-09-13] VITALS: Ht 157.5 cm; Wt 65.4 kg
[~2020-09-13 19:42] MED LIST changes: +DITROPAN XL5 MG PO; +FLONASE AL50 MCG/ACT IN; +LEVAQUIN750 M1 PO; +METHOTREXATE2.5 MG PO; +NIFEDIPINE10 M1 PO
[2020-09-13] MEDS ORDERED: METOPROLOL SUCC50 MG PO (20:14)
[2020-09-13 20:28] LABS: HEMATOCRIT 36.7 % (37.0-47.0); HEMOGLOBIN 11.5 g/dl (12.0-16.0); MEAN CELL VOLUME 96.1 fL CALC (80.0-100.0); MEAN CORPUSCULAR HGB 30.1 pG CALC (26.0-32.0); MEAN CORPUSCULAR HGB CONC 31.3 g/dL CAL (32.0-36.0); NEUT# 7.39 thou/uL (2.00-7.15); RED BLOOD COUNT 3.82 mill/uL (4.20-5.60); RED CELL DISTRI WIDTH 16.9 % (11.5-15.5)
[2020-09-13 20:29] LABS: URINE BILIRUBIN - DIPSTICK NEGATIVE (NEGATIVE); URINE BLOOD DIPSTICK NEGATIVE (NEGATIVE); URINE COLOR YELLOW; URINE GLUCOSE - DIPSTICK >=1000 mg/dL (NEGATIVE); URINE KETONE NEGATIVE (NEGATIVE); URINE LEUK ESTERASE NEGATIVE (NEGATIVE); URINE PH 5.5 (4.5-8.0); URINE PROTEIN - DIPSTICK NEGATIVE (NEG-TRACE); URINE SPECIFIC GRAVITY >=1.030; URINE UROBILINOGEN - DIPSTICK 0.2 E.U./dL (0.2)
[2020-09-13 20:32] LABS: URINE NITRITE - DIPSTICK NEGATIVE (Negative)
[2020-09-13] MEDS ORDERED: ONDANSETRON4 MG PO (20:33)
[2020-09-13] MEDS ORDERED: DOCUSATE SO1 PO (20:35)
[2020-09-13] MEDS ORDERED: MECLIZINE25 M1 PO (20:36)
[2020-09-13] MEDS ORDERED: PROAIR HFA IN (20:39)
[2020-09-13] MEDS ORDERED: SERTRALINE100 MG PO (20:41)
[2020-09-13 20:45] LABS: ACT PARTIAL THROMBO TIME 20.1 SECONDS (20.0-32.5); ALBUMIN 3.8 g/dL (3.2-5.0); ALKALINE PHOSPHATASE 54 u/l (38-126); BUN 28 mg/dL (8-23); BUN/CREATININE RATIO 24 (12-20 (CALC)); CARBON DIOXIDE 24 mmol/l (22-30); CHLORIDE 101 mmol/l (95-108); CREATININE 1.2 mg/dL (0.5-1.0); ETHYL ALCOHOL 0 mg/dl (0-30); GFR 44 ML/MIN (>=60 (CALC)); GFR FOR AFR.AMER. 53 ML/MIN (>=60 (CALC)); LIPASE 250 u/l (23-300); POTASSIUM 3.9 mmol/l (3.5-5.1); SGOT/AST 24 u/l (9-36)
[2020-09-13 20:46] LABS: ANION GAP 11 (6-22 (CALC)); BILIRUBIN, TOTAL 0.3 mg/dL (0.0-1.4); SODIUM 132 mmol/l (137-146); TOTAL PROTEIN 6.6 g/dL (6.3-8.2)
[2020-09-13] MEDS ORDERED: MAGNESIUM OXID400 M3 (20:49)
[2020-09-13 21:55] VITALS: BP 173/74
== END 2020-09-13 21:55 | disposition home or self-care (01) ==
LOC: ED 19:42
DX: R42 Dizziness and giddiness (principal); E86.0 Dehydration; E11.65 Type 2 diabetes mellitus with hyperglycemia; I10 Essential (primary) hypertension; D64.9 Anemia, unspecified; M06.9 Rheumatoid arthritis, unspecified; J45.909 Unspecified asthma, uncomplicated; K21.9 Gastro-esophageal reflux disease without esophagitis; F41.9 Anxiety disorder, unspecified; F32.9 Major depressive disorder, single episode, unspecified; Z87.442 Personal history of urinary calculi; Z87.440 Personal history of urinary (tract) infections; Z91.041 Radiographic dye allergy status

== ENCOUNTER 2020-09-18 19:12 | Emergency (ER) | payer MEDICARE ==
[~2020-09-18] VITALS: Ht 157.5 cm; Wt 65.0 kg
[~2020-09-18 19:12] MED LIST changes: +DOCUSATE SO1 PO; +MAGNESIUM OXID400 M3; +MECLIZINE25 M1 PO; +METOPROLOL SUCC50 MG PO; +ONDANSETRON4 MG PO; +SERTRALINE100 MG PO
[2020-09-18 20:17] LABS: HEMATOCRIT 33.8 % (37.0-47.0); HEMOGLOBIN 10.6 g/dl (12.0-16.0); IMMATURE GRANULOCYTES 2.2 % (0.0-5.0); MEAN CELL VOLUME 97.7 fL CALC (80.0-100.0); MEAN CORPUSCULAR HGB 30.6 pG CALC (26.0-32.0); MEAN CORPUSCULAR HGB CONC 31.4 g/dL CAL (32.0-36.0); NEUT# 4.46 thou/uL (2.00-7.15); RED BLOOD COUNT 3.46 mill/uL (4.20-5.60); RED CELL DISTRI WIDTH 17.6 % (11.5-15.5)
[2020-09-18 20:17] LABS: URINE BILIRUBIN - DIPSTICK NEGATIVE (NEGATIVE); URINE BLOOD DIPSTICK NEGATIVE (NEGATIVE); URINE COLOR YELLOW; URINE GLUCOSE - DIPSTICK 250 mg/dL (NEGATIVE); URINE KETONE NEGATIVE (NEGATIVE); URINE LEUK ESTERASE NEGATIVE (NEGATIVE); URINE NITRITE - DIPSTICK NEGATIVE (Negative); URINE PH 5.5 (4.5-8.0); URINE PROTEIN - DIPSTICK TRACE mg/dL (NEG-TRACE); URINE SPECIFIC GRAVITY >=1.030; URINE UROBILINOGEN - DIPSTICK 0.2 E.U./dL (0.2)
[2020-09-18 20:27] LABS: ALBUMIN 3.6 g/dL (3.2-5.0); BILIRUBIN, TOTAL 0.7 mg/dL (0.0-1.4); CREATININE 1.3 mg/dL (0.5-1.0); POTASSIUM 3.8 mmol/l (3.5-5.1); TOTAL PROTEIN 6.2 g/dL (6.3-8.2)
[2020-09-18] MEDS ORDERED: MOTRIN400 MG/TAB PO (21:40)
[2020-09-18] MEDS ORDERED: ORPHENADRINE100 MG PO (21:40)
[2020-09-18 22:17] VITALS: BP 144/67
== END 2020-09-18 22:20 | disposition home or self-care (01) ==
LOC: ED 19:12
PROVIDERS: Emergency Medicine
DX: R10.9 Unspecified abdominal pain (principal); I10 Essential (primary) hypertension; M06.9 Rheumatoid arthritis, unspecified; J45.909 Unspecified asthma, uncomplicated; K21.9 Gastro-esophageal reflux disease without esophagitis; F41.9 Anxiety disorder, unspecified; F32.9 Major depressive disorder, single episode, unspecified; Z87.440 Personal history of urinary (tract) infections; Z87.442 Personal history of urinary calculi

== ENCOUNTER 2020-12-04 07:55 | Emergency (ER) | payer MEDICARE ==
[~2020-12-04] VITALS: Ht 157.5 cm; Wt 65.0 kg
[~2020-12-04 07:55] MED LIST changes: +MOTRIN400 MG/TAB PO; +ORPHENADRINE100 MG PO
[2020-12-04 08:39] LABS: HEMATOCRIT 32.4 % (37.0-47.0); HEMOGLOBIN 10.2 g/dl (12.0-16.0); IMMATURE GRANULOCYTES 1.3 % (0.0-5.0); MEAN CELL VOLUME 98.2 fL CALC (80.0-100.0); MEAN CORPUSCULAR HGB 30.9 pG CALC (26.0-32.0); MEAN CORPUSCULAR HGB CONC 31.5 g/dL CAL (32.0-36.0); NEUT# 5.69 thou/uL (2.00-7.15); RED BLOOD COUNT 3.3 mill/uL (4.20-5.60); RED CELL DISTRI WIDTH 15.7 % (11.5-15.5)
[2020-12-04 08:58] LABS: ALBUMIN 3.6 g/dL (3.2-5.0); BILIRUBIN, TOTAL 0.4 mg/dL (0.0-1.4); CREATININE 1.1 mg/dL (0.5-1.0); POTASSIUM 3.6 mmol/l (3.5-5.1)
[2020-12-04 08:59] LABS: INTERNATIONAL NORMALIZED RATIO 0.9 RATIO (0.7-1.3); PROTHROMBIN TIME 9.9 SECONDS (9.0-12.5)
[2020-12-04] MEDS ORDERED: ULTRAM50 M1 PO (12:09)
[2020-12-04 12:48] VITALS: BP 154/66
== END 2020-12-04 13:00 | disposition home or self-care (01) ==
LOC: ED 07:55 → ED-I 11:43 → ED 13:00
PROVIDERS: Emergency Medicine
PROC: 2Y41X5Z Packing of Nasal Region using Packing Material (ICD-10-PCS; principal; 2020-12-04)
DX: R04.0 Epistaxis (principal); I10 Essential (primary) hypertension; E11.9 Type 2 diabetes mellitus without complications; M06.9 Rheumatoid arthritis, unspecified; J45.909 Unspecified asthma, uncomplicated; K21.9 Gastro-esophageal reflux disease without esophagitis; E78.00 Pure hypercholesterolemia, unspecified; F41.9 Anxiety disorder, unspecified; F32.9 Major depressive disorder, single episode, unspecified; Z87.442 Personal history of urinary calculi; Z87.440 Personal history of urinary (tract) infections

== ENCOUNTER 2020-12-05 09:10 | Emergency (ER) | payer MEDICARE ==
[~2020-12-05] VITALS: Ht 157.5 cm; Wt 75.0 kg
[2020-12-05 10:47] VITALS: BP 122/64
== END 2020-12-05 10:54 | disposition home or self-care (01) ==
LOC: ED 09:10
DX: Z48.00 Encounter for change or removal of nonsurgical wound dressing (principal); R11.0 Nausea; R10.9 Unspecified abdominal pain; I10 Essential (primary) hypertension; M06.9 Rheumatoid arthritis, unspecified; J45.909 Unspecified asthma, uncomplicated; K21.9 Gastro-esophageal reflux disease without esophagitis; F41.9 Anxiety disorder, unspecified; F32.9 Major depressive disorder, single episode, unspecified; Z87.442 Personal history of urinary calculi; Z87.440 Personal history of urinary (tract) infections; E78.00 Pure hypercholesterolemia, unspecified

== ENCOUNTER 2020-12-27 16:55 | Emergency (ER) | payer MEDICARE ==
[~2020-12-27] VITALS: Ht 157.5 cm; Wt 52.3 kg
[2020-12-27 19:50] LABS: HEMATOCRIT 32.9 % (37.0-47.0); HEMOGLOBIN 10.1 g/dl (12.0-16.0); IMMATURE GRANULOCYTES 0.5 % (0.0-5.0); MEAN CORPUSCULAR HGB 28.3 pG CALC (26.0-32.0); MEAN CORPUSCULAR HGB CONC 30.7 g/dL CAL (32.0-36.0); NEUT# 6.26 thou/uL (2.00-7.15); RED BLOOD COUNT 3.57 mill/uL (4.20-5.60)
[2020-12-27 19:53] LABS: MEAN CELL VOLUME 92.2 fL CALC (80.0-100.0)
[2020-12-27 19:54] LABS: URINE BLOOD DIPSTICK NEGATIVE (NEGATIVE); URINE GLUCOSE - DIPSTICK NEGATIVE (NEGATIVE); URINE KETONE TRACE mg/dL (NEGATIVE); URINE LEUK ESTERASE NEGATIVE (NEGATIVE); URINE PH 5.5 (4.5-8.0); URINE PROTEIN - DIPSTICK TRACE mg/dL (NEG-TRACE); URINE SPECIFIC GRAVITY >=1.030; URINE UROBILINOGEN - DIPSTICK 0.2 E.U./dL (0.2)
[2020-12-27 20:03] LABS: URINE BILIRUBIN - DIPSTICK MODERATE (NEGATIVE)
[2020-12-27 20:04] LABS: URINE COLOR DK. YELLOW; URINE NITRITE - DIPSTICK NEGATIVE (Negative)
[2020-12-27 20:08] LABS: ALBUMIN 4.1 g/dL (3.2-5.0); CREATININE 1.7 mg/dL (0.5-1.0); POTASSIUM 3.2 mmol/l (3.5-5.1); TOTAL PROTEIN 7.2 g/dL (6.3-8.2)
[2020-12-27 20:12] LABS: BILIRUBIN, TOTAL 0.7 mg/dL (0.0-1.4)
[2020-12-27] MEDS ORDERED: DICLOFENAC SODIUM1 % TOP (20:18)
[2020-12-27] MEDS ORDERED: MECLIZINE25 MG PO (20:21)
[2020-12-27] MEDS ORDERED: VITAMIN D32000 UNI2 PO (20:22)
[2020-12-27 20:25] VITALS: BP 142/86
[2020-12-27] MEDS ORDERED: Levaquin PO (20:34)
== END 2020-12-27 20:48 | disposition home or self-care (01) ==
LOC: ED 16:55
PROVIDERS: Family Medicine
DX: R06.02 Shortness of breath (principal); I10 Essential (primary) hypertension; E11.9 Type 2 diabetes mellitus without complications; J45.909 Unspecified asthma, uncomplicated; M06.9 Rheumatoid arthritis, unspecified; K21.9 Gastro-esophageal reflux disease without esophagitis; F41.9 Anxiety disorder, unspecified; F32.9 Major depressive disorder, single episode, unspecified; Z87.442 Personal history of urinary calculi; Z87.440 Personal history of urinary (tract) infections; Z20.822 Contact with and (suspected) exposure to COVID-19

== ENCOUNTER 2021-01-31 17:11 | Emergency (ER) | payer MEDICARE ==
[~2021-01-31] VITALS: Ht 157.5 cm; Wt 70.0 kg
[~2021-01-31 17:11] MED LIST changes: +DICLOFENAC SODIUM1 % TOP; +VITAMIN D32000 UNI2 PO
[2021-01-31 20:05] LABS: HEMATOCRIT 31.8 % (37.0-47.0); HEMOGLOBIN 9.5 g/dl (12.0-16.0); IMMATURE GRANULOCYTES 1.1 % (0.0-5.0); MEAN CELL VOLUME 89.3 fL CALC (80.0-100.0); MEAN CORPUSCULAR HGB 26.7 pG CALC (26.0-32.0); MEAN CORPUSCULAR HGB CONC 29.9 g/dL CAL (32.0-36.0); NEUT# 7.22 thou/uL (2.00-7.15); RED BLOOD COUNT 3.56 mill/uL (4.20-5.60); RED CELL DISTRI WIDTH 17.4 % (11.5-15.5); URINE BILIRUBIN - DIPSTICK NEGATIVE (NEGATIVE); URINE BLOOD DIPSTICK NEGATIVE (NEGATIVE); URINE COLOR YELLOW; URINE GLUCOSE - DIPSTICK NEGATIVE (NEGATIVE); URINE KETONE NEGATIVE (NEGATIVE); URINE LEUK ESTERASE TRACE (NEGATIVE); URINE PROTEIN - DIPSTICK TRACE mg/dL (NEG-TRACE); URINE SPECIFIC GRAVITY >=1.030; URINE UROBILINOGEN - DIPSTICK 0.2 E.U./dL (0.2)
[2021-01-31 20:17] LABS: URINE NITRITE - DIPSTICK POSITIVE (Negative)
[2021-01-31 20:22] LABS: ALBUMIN 3.9 g/dL (3.2-5.0); ALKALINE PHOSPHATASE 58 u/l (38-126); ANION GAP 10 (6-22 (CALC)); BILIRUBIN, TOTAL 0.6 mg/dL (0.0-1.4); BUN 15 mg/dL (8-23); BUN/CREATININE RATIO 14 (12-20 (CALC)); CARBON DIOXIDE 30 mmol/l (22-30); CHLORIDE 103 mmol/l (95-108); CREATININE 1.1 mg/dL (0.5-1.0); GFR 49 ML/MIN (>=60 (CALC)); GFR FOR AFR.AMER. 59 ML/MIN (>=60 (CALC)); POTASSIUM 3.8 mmol/l (3.5-5.1); SGOT/AST 23 u/l (9-36); TOTAL PROTEIN 6.6 g/dL (6.3-8.2)
[2021-01-31 20:23] LABS: SODIUM 139 mmol/l (137-146)
[2021-01-31 20:26] LABS: URINE WBC 20-50 WBC/hpf (0-5)
[2021-01-31 20:27] LABS: URINE BACTERIA MODERATE hpf; URINE CALCIUM OXALATE CRYSTALS FEW lpf; URINE SQUAMOUS EPITHELIAL CELL FEW EPI/hpf (0-FEW)
[2021-01-31 20:37] LABS: MYOGLOBIN 32 ng/mL (0 - 62)
[2021-01-31] MEDS ORDERED: BACTRIM DS1 TAB PO (22:21)
[2021-01-31 22:26] VITALS: BP 172/76
== END 2021-01-31 22:30 | disposition home or self-care (01) ==
LOC: ED 17:11
PROVIDERS: Family Medicine
DX: N39.0 Urinary tract infection, site not specified (principal); B96.20 Unspecified Escherichia coli [E. coli] as the cause of diseases classified elsewhere; D64.9 Anemia, unspecified; I10 Essential (primary) hypertension; E11.9 Type 2 diabetes mellitus without complications; E78.00 Pure hypercholesterolemia, unspecified; M06.9 Rheumatoid arthritis, unspecified; J45.909 Unspecified asthma, uncomplicated; K21.9 Gastro-esophageal reflux disease without esophagitis; F41.9 Anxiety disorder, unspecified; F32.A Depression, unspecified; Z87.440 Personal history of urinary (tract) infections; Z87.442 Personal history of urinary calculi
CPT/HCPCS: Q9967

== ENCOUNTER 2021-04-10 13:16 | Observation (INO) | payer MEDICARE ==
[~2021-04-10] VITALS: Ht 157.5 cm; Wt 56.0 kg
[~2021-04-10 13:16] MED LIST changes: +BACTRIM DS1 TAB PO
[2021-04-10 14:13] LABS: HEMATOCRIT 30.3 % (37.0-47.0); HEMOGLOBIN 9.1 g/dl (12.0-16.0); IMMATURE GRANULOCYTES 0.2 % (0.0-5.0); MEAN CORPUSCULAR HGB 27.7 pG CALC (26.0-32.0); NEUT# 3.97 thou/uL (2.00-7.15); RED BLOOD COUNT 3.28 mill/uL (4.20-5.60); RED CELL DISTRI WIDTH 18.2 % (11.5-15.5)
[2021-04-10 14:14] LABS: MEAN CELL VOLUME 92.4 fL CALC (80.0-100.0)
[2021-04-10 14:33] LABS: ALBUMIN 3.8 g/dL (3.2-5.0); ALKALINE PHOSPHATASE 65 u/l (38-126); ANION GAP 9 (6-22 (CALC)); BILIRUBIN, TOTAL 0.5 mg/dL (0.0-1.4); BUN 16 mg/dL (8-23); BUN/CREATININE RATIO 18 (12-20 (CALC)); CARBON DIOXIDE 28 mmol/l (22-30); CHLORIDE 107 mmol/l (95-108); CREATININE 0.9 mg/dL (0.5-1.0); GFR > 60 ML/MIN (>=60 (CALC)); GFR FOR AFR.AMER. > 60 ML/MIN (>=60 (CALC)); POTASSIUM 3.6 mmol/l (3.5-5.1); SODIUM 140 mmol/l (137-146); TOTAL PROTEIN 6.6 g/dL (6.3-8.2)
[2021-04-10 14:35] LABS: SGOT/AST 54 u/l (9-36)
[2021-04-10 15:01] LABS: C-REACTIVE PROTEIN 2.1 mg/dL (0-0.9)
[2021-04-10 20:46] VITALS: BP 171/63
[2021-04-10 21:21] VITALS: BP 156/75
[2021-04-10 23:05] VITALS: BP 185/74
[2021-04-11] VITALS (15 sets, daily range): BP systolic 142–212; BP diastolic 57–88
[2021-04-11 05:16] LABS: HEMATOCRIT 33.9 % (37.0-47.0); HEMOGLOBIN 10.4 g/dl (12.0-16.0); IMMATURE GRANULOCYTES 0.5 % (0.0-5.0); MEAN CELL VOLUME 90.2 fL CALC (80.0-100.0); MEAN CORPUSCULAR HGB 27.7 pG CALC (26.0-32.0); MEAN CORPUSCULAR HGB CONC 30.7 g/dL CAL (32.0-36.0); NEUT# 4.53 thou/uL (2.00-7.15); RED BLOOD COUNT 3.76 mill/uL (4.20-5.60); RED CELL DISTRI WIDTH 18.1 % (11.5-15.5)
[2021-04-11 05:33] LABS: ALBUMIN 3.8 g/dL (3.2-5.0); ALKALINE PHOSPHATASE 72 u/l (38-126); ANION GAP 11 (6-22 (CALC)); BILIRUBIN, TOTAL 0.6 mg/dL (0.0-1.4); BUN 14 mg/dL (8-23); BUN/CREATININE RATIO 20 (12-20 (CALC)); C-REACTIVE PROTEIN 3.5 mg/dL (0-0.9); CARBON DIOXIDE 26 mmol/l (22-30); CHLORIDE 102 mmol/l (95-108); CREATININE 0.7 mg/dL (0.5-1.0); GFR > 60 ML/MIN (>=60 (CALC)); GFR FOR AFR.AMER. > 60 ML/MIN (>=60 (CALC)); POTASSIUM 3.8 mmol/l (3.5-5.1); SGOT/AST 36 u/l (9-36); SODIUM 136 mmol/l (137-146); TOTAL PROTEIN 6.5 g/dL (6.3-8.2)
[2021-04-11 12:15] LABS: URINE BILIRUBIN - DIPSTICK NEGATIVE (NEGATIVE); URINE BLOOD DIPSTICK NEGATIVE (NEGATIVE); URINE CLARITY CLEAR; URINE COLOR YELLOW; URINE GLUCOSE - DIPSTICK NEGATIVE (NEGATIVE); URINE KETONE Negative (NEGATIVE); URINE LEUK ESTERASE NEGATIVE (Negative); URINE NITRITE - DIPSTICK NEGATIVE (Negative); URINE PH 6.5 (4.5-8.0); URINE PROTEIN - DIPSTICK 30 mg/dL (NEG-TRACE); URINE SPECIFIC GRAVITY 1.025; URINE UROBILINOGEN - DIPSTICK 0.2 E.U./dL (0.2)
[2021-04-11 12:16] LABS: URINE EPITHELIAL CELLS RARE EPI/hpf (0-FEW)
[2021-04-12] VITALS (19 sets, daily range): BP systolic 114–194; BP diastolic 54–74
[2021-04-12 05:36] LABS: HEMATOCRIT 30.8 % (37.0-47.0); HEMOGLOBIN 9.4 g/dl (12.0-16.0); MEAN CELL VOLUME 90.6 fL CALC (80.0-100.0); MEAN CORPUSCULAR HGB 27.6 pG CALC (26.0-32.0); MEAN CORPUSCULAR HGB CONC 30.5 g/dL CAL (32.0-36.0); RED BLOOD COUNT 3.4 mill/uL (4.20-5.60); RED CELL DISTRI WIDTH 18.7 % (11.5-15.5)
[2021-04-12 05:57] LABS: ALBUMIN 3.1 g/dL (3.2-5.0); ALKALINE PHOSPHATASE 59 u/l (38-126); ANION GAP 8 (6-22 (CALC)); BILIRUBIN, TOTAL 0.5 mg/dL (0.0-1.4); BUN 17 mg/dL (8-23); BUN/CREATININE RATIO 21 (12-20 (CALC)); CARBON DIOXIDE 28 mmol/l (22-30); CHLORIDE 103 mmol/l (95-108); CREATININE 0.8 mg/dL (0.5-1.0); GFR > 60 ML/MIN (>=60 (CALC)); GFR FOR AFR.AMER. > 60 ML/MIN (>=60 (CALC)); POTASSIUM 3.5 mmol/l (3.5-5.1); SGOT/AST 30 u/l (9-36); SODIUM 136 mmol/l (137-146); TOTAL PROTEIN 5.7 g/dL (6.3-8.2)
[2021-04-12] MEDS ORDERED: TRAZODONE50 MG PO (10:08)
[2021-04-13] VITALS (7 sets, daily range): BP systolic 155–186; BP diastolic 72–90
[2021-04-13 05:03] LABS: HEMATOCRIT 32.1 % (37.0-47.0); HEMOGLOBIN 9.7 g/dl (12.0-16.0); IMMATURE GRANULOCYTES 1.1 % (0.0-5.0); MEAN CELL VOLUME 90.4 fL CALC (80.0-100.0); MEAN CORPUSCULAR HGB 27.3 pG CALC (26.0-32.0); MEAN CORPUSCULAR HGB CONC 30.2 g/dL CAL (32.0-36.0); NEUT# 2.78 thou/uL (2.00-7.15); RED BLOOD COUNT 3.55 mill/uL (4.20-5.60)
[2021-04-13 05:29] LABS: ALBUMIN 3.4 g/dL (3.2-5.0); ALKALINE PHOSPHATASE 62 u/l (38-126); ANION GAP 8 (6-22 (CALC)); BILIRUBIN, TOTAL 0.4 mg/dL (0.0-1.4); BUN 18 mg/dL (8-23); BUN/CREATININE RATIO 22 (12-20 (CALC)); CARBON DIOXIDE 27 mmol/l (22-30); CHLORIDE 105 mmol/l (95-108); CREATININE 0.8 mg/dL (0.5-1.0); GFR > 60 ML/MIN (>=60 (CALC)); GFR FOR AFR.AMER. > 60 ML/MIN (>=60 (CALC)); SGOT/AST 25 u/l (9-36); SODIUM 136 mmol/l (137-146)
[2021-04-13] MEDS ORDERED: LEVAQUIN750 M1 PO (12:40)
[2021-04-13] MEDS ORDERED: DEXAMETHASON6 MG PO (12:42)
== END 2021-04-13 17:13 | disposition home or self-care (01) ==
LOC: ED 13:16 → ED-I 15:00 → ED 16:01 → ICU 16:02 → MS2 04-12 12:00
PROVIDERS: Family Medicine; Nurse Practitioner; ADMIT Internal Medicine; ATTEND Internal Medicine
PROC: XW033E5 Introduction of Remdesivir Anti-infective into Peripheral Vein, Percutaneous Approach, New Technology Group 5 (ICD-10-PCS; principal; 2021-04-11)
DX: U07.1 COVID-19 (principal); J12.82 Pneumonia due to coronavirus disease 2019; R09.02 Hypoxemia; I10 Essential (primary) hypertension; E11.65 Type 2 diabetes mellitus with hyperglycemia; M06.9 Rheumatoid arthritis, unspecified; J45.909 Unspecified asthma, uncomplicated; K21.9 Gastro-esophageal reflux disease without esophagitis; F41.9 Anxiety disorder, unspecified; F32.A Depression, unspecified; E78.00 Pure hypercholesterolemia, unspecified; R41.3 Other amnesia; D64.9 Anemia, unspecified; Z87.442 Personal history of urinary calculi; Z87.440 Personal history of urinary (tract) infections
CPT/HCPCS: J1650

== ENCOUNTER 2021-05-15 16:23 | Emergency (ER) | payer MEDICARE ==
[~2021-05-15] VITALS: Ht 157.5 cm; Wt 58.0 kg
[~2021-05-15 16:23] MED LIST changes: +DEXAMETHASON6 MG PO
[2021-05-15 18:47] LABS: HEMATOCRIT 32.5 % (37.0-47.0); HEMOGLOBIN 9.9 g/dl (12.0-16.0); IMMATURE GRANULOCYTES 0.3 % (0.0-5.0); MEAN CELL VOLUME 89.5 fL CALC (80.0-100.0); MEAN CORPUSCULAR HGB 27.3 pG CALC (26.0-32.0); MEAN CORPUSCULAR HGB CONC 30.5 g/dL CAL (32.0-36.0); NEUT# 5.51 thou/uL (2.00-7.15); RED BLOOD COUNT 3.63 mill/uL (4.20-5.60); RED CELL DISTRI WIDTH 16.1 % (11.5-15.5)
[2021-05-15 19:00] LABS: ALBUMIN 3.3 g/dL (3.2-5.0); ALKALINE PHOSPHATASE 58 u/l (38-126); ANION GAP 12 (6-22 (CALC)); BUN 10 mg/dL (8-23); BUN/CREATININE RATIO 15 (12-20 (CALC)); CARBON DIOXIDE 24 mmol/l (22-30); CHLORIDE 106 mmol/l (95-108); CREATININE 0.7 mg/dL (0.5-1.0); GFR > 60 ML/MIN (>=60 (CALC)); GFR FOR AFR.AMER. > 60 ML/MIN (>=60 (CALC)); POTASSIUM 3.5 mmol/l (3.5-5.1); SGOT/AST 19 u/l (9-36); SODIUM 138 mmol/l (137-146); TOTAL PROTEIN 6.1 g/dL (6.3-8.2)
[2021-05-15 19:01] LABS: BILIRUBIN, TOTAL 0.7 mg/dL (0.0-1.4)
[2021-05-15 19:07] LABS: ACT PARTIAL THROMBO TIME 27.5 SECONDS (20.0-32.5); PROTHROMBIN TIME 10.9 SECONDS (9.0-12.5)
[2021-05-15] MEDS ORDERED: ULTRAM50 MG PO (19:10)
[2021-05-15] MEDS ORDERED: MEDDOSEPAK PO (19:10)
[2021-05-15 19:56] VITALS: BP 173/77
== END 2021-05-15 20:10 | disposition home or self-care (01) ==
LOC: ED 16:23
DX: M06.9 Rheumatoid arthritis, unspecified (principal); I10 Essential (primary) hypertension; E11.9 Type 2 diabetes mellitus without complications; J45.909 Unspecified asthma, uncomplicated; K21.9 Gastro-esophageal reflux disease without esophagitis; F41.9 Anxiety disorder, unspecified; F32.A Depression, unspecified; E78.00 Pure hypercholesterolemia, unspecified; Z87.440 Personal history of urinary (tract) infections; T39.316A Underdosing of propionic acid derivatives, initial encounter; T38.0X6A Underdosing of glucocorticoids and synthetic analogues, initial encounter; Z91.120 Patient's intentional underdosing of medication regimen due to financial hardship; T45.1X6A Underdosing of antineoplastic and immunosuppressive drugs, initial encounter; Z91.128 Patient's intentional underdosing of medication regimen for other reason; Z86.16 Personal history of COVID-19

== ENCOUNTER 2021-06-26 08:10 | Emergency (ER) | payer MEDICARE ==
[2021-06-26] VITALS (12 sets, daily range): BP systolic 109–204; BP diastolic 56–86
[~2021-06-26] VITALS: Ht 157.5 cm; Wt 70.0 kg
[~2021-06-26 08:10] MED LIST changes: +DONEPEZIL10 MG PO; +FERROUS SULF325 M2 PO; +ULTRAM50 MG PO; +VALACYCLOVIR H500 M1 PO
[2021-06-26 09:48] LABS: HEMATOCRIT 34.6 % (37.0-47.0); HEMOGLOBIN 10.7 g/dl (12.0-16.0); IMMATURE GRANULOCYTES 0.3 % (0.0-5.0); MEAN CELL VOLUME 88.9 fL CALC (80.0-100.0); MEAN CORPUSCULAR HGB 27.5 pG CALC (26.0-32.0); MEAN CORPUSCULAR HGB CONC 30.9 g/dL CAL (32.0-36.0); NEUT# 5.38 thou/uL (2.00-7.15); RED BLOOD COUNT 3.89 mill/uL (4.20-5.60); RED CELL DISTRI WIDTH 16.6 % (11.5-15.5)
[2021-06-26 10:03] LABS: URINE BILIRUBIN - DIPSTICK NEGATIVE (NEGATIVE); URINE BLOOD DIPSTICK NEGATIVE (NEGATIVE); URINE COLOR YELLOW; URINE GLUCOSE - DIPSTICK NEGATIVE (NEGATIVE); URINE KETONE NEGATIVE (NEGATIVE); URINE LEUK ESTERASE NEGATIVE (NEGATIVE); URINE PROTEIN - DIPSTICK NEGATIVE (NEG-TRACE); URINE SPECIFIC GRAVITY >=1.030; URINE UROBILINOGEN - DIPSTICK 0.2 E.U./dL (0.2)
[2021-06-26] MEDS ORDERED: MAGNESIUM OXID400 M1 PO (10:03)
[2021-06-26] MEDS ORDERED: ACYCLOVIR400 MG PO (10:05)
[2021-06-26] MEDS ORDERED: HYDROCO/APAP1 TA9 PO (10:06)
[2021-06-26 10:08] LABS: URINE NITRITE - DIPSTICK NEGATIVE (Negative)
[2021-06-26] MEDS ORDERED: METHOTREXATE2.5 MG PO (10:08)
[2021-06-26] MEDS ORDERED: LEVOFLOXACIN250 M1 PO (10:08)
[2021-06-26 10:14] LABS: ACT PARTIAL THROMBO TIME 26.7 SECONDS (20.0-32.5); PROTHROMBIN TIME 10.8 SECONDS (9.0-12.5)
[2021-06-26 10:16] LABS: ALBUMIN 3.7 g/dL (3.2-5.0); ALKALINE PHOSPHATASE 62 u/l (38-126); BUN 10 mg/dL (8-23); BUN/CREATININE RATIO 12 (12-20 (CALC)); CHLORIDE 103 mmol/l (95-108); CREATININE 0.8 mg/dL (0.5-1.0); ETHYL ALCOHOL 0 mg/dl (0-30); GFR > 60 ML/MIN (>=60 (CALC)); GFR FOR AFR.AMER. > 60 ML/MIN (>=60 (CALC)); LIPASE 32 u/l (23-300); POTASSIUM 3.8 mmol/l (3.5-5.1); SGOT/AST 21 u/l (9-36); SODIUM 139 mmol/l (137-146); TOTAL PROTEIN 6.7 g/dL (6.3-8.2)
[2021-06-26 10:23] LABS: ANION GAP 11 (6-22 (CALC)); BILIRUBIN, TOTAL 0.4 mg/dL (0.0-1.4); CARBON DIOXIDE 29 mmol/l (22-30)
== END 2021-06-26 11:22 | disposition home or self-care (01) ==
LOC: ED 08:10
DX: S16.1XXA Strain of muscle, fascia and tendon at neck level, initial encounter (principal); S51.811A Laceration without foreign body of right forearm, initial encounter; S00.03XA Contusion of scalp, initial encounter; I10 Essential (primary) hypertension; E11.9 Type 2 diabetes mellitus without complications; M06.9 Rheumatoid arthritis, unspecified; J45.909 Unspecified asthma, uncomplicated; F41.9 Anxiety disorder, unspecified; F32.A Depression, unspecified; E78.00 Pure hypercholesterolemia, unspecified; W01.0XXA Fall on same level from slipping, tripping and stumbling without subsequent striking against object, initial encounter; Y92.003 Bedroom of unspecified non-institutional (private) residence as the place of occurrence of the external cause; Z87.440 Personal history of urinary (tract) infections; Z87.442 Personal history of urinary calculi; Z20.822 Contact with and (suspected) exposure to COVID-19
CPT/HCPCS: J0131

== ENCOUNTER 2021-09-19 13:44 | Inpatient (IN) | payer MEDICARE ==
[~2021-09-19] VITALS: Ht 157.5 cm; Wt 54.0 kg
[~2021-09-19 13:44] MED LIST changes: -FOLIC ACI1 PO; +LEVOFLOXACIN250 M1 PO; +MAGNESIUM OXID400 M1 PO
[2021-09-19 14:14] LABS: HEMATOCRIT 29.3 % (37.0-47.0); HEMOGLOBIN 9.2 g/dl (12.0-16.0); IMMATURE GRANULOCYTES 0.3 % (0.0-5.0); MEAN CELL VOLUME 85.7 fL CALC (80.0-100.0); MEAN CORPUSCULAR HGB 26.9 pG CALC (26.0-32.0); MEAN CORPUSCULAR HGB CONC 31.4 g/dL CAL (32.0-36.0); NEUT# 7.95 thou/uL (2.00-7.15); RED BLOOD COUNT 3.42 mill/uL (4.20-5.60); RED CELL DISTRI WIDTH 17.3 % (11.5-15.5)
[2021-09-19] MEDS ORDERED: LOSARTAN/HCT1 TA2 PO (14:28)
[2021-09-19] MEDS ORDERED: LORAZEPAM0.5 MG PO (14:30)
[2021-09-19 14:31] LABS: ALBUMIN 3.5 g/dL (3.2-5.0); ALKALINE PHOSPHATASE 60 u/l (38-126); BUN 10 mg/dL (8-23); BUN/CREATININE RATIO 15 (12-20 (CALC)); CARBON DIOXIDE 32 mmol/l (22-30); CHLORIDE 96 mmol/l (95-108); CREATININE 0.7 mg/dL (0.5-1.0); GFR FOR AFR.AMER. > 60 ML/MIN (>=60 (CALC)); GFR OTHER RACES > 60 ML/MIN (>=60 (CALC)); LIPASE 20 u/l (23-300); SGOT/AST 17 u/l (9-36); TOTAL PROTEIN 6.2 g/dL (6.3-8.2)
[2021-09-19] MEDS ORDERED: DICLOFENAC SODIUM1 % TOP (14:32)
[2021-09-19 14:33] LABS: ANION GAP 6 (6-22 (CALC)); BILIRUBIN, TOTAL 0.7 mg/dL (0.0-1.4); POTASSIUM 2.9 mmol/l (3.5-5.1); SODIUM 131 mmol/l (137-146)
[2021-09-19] MEDS ORDERED: HYDROCODONE BIT1 TA7 PO (14:34)
[2021-09-19 17:02] LABS: URINE BILIRUBIN - DIPSTICK NEGATIVE (NEGATIVE); URINE BLOOD DIPSTICK NEGATIVE (NEGATIVE); URINE COLOR YELLOW; URINE GLUCOSE - DIPSTICK NEGATIVE (NEGATIVE); URINE KETONE NEGATIVE (NEGATIVE); URINE LEUK ESTERASE TRACE (NEGATIVE); URINE PROTEIN - DIPSTICK NEGATIVE (NEG-TRACE); URINE UROBILINOGEN - DIPSTICK 0.2 E.U./dL (0.2)
[2021-09-19 17:03] LABS: URINE NITRITE - DIPSTICK POSITIVE (Negative)
[2021-09-19 17:08] LABS: URINE BACTERIA MANY hpf
[2021-09-20] VITALS (46 sets, daily range): BP systolic 126–179; BP diastolic 53–90
[2021-09-20 08:03] LABS: ANION GAP 8 (6-22 (CALC)); BUN 10 mg/dL (8-23); BUN/CREATININE RATIO 19 (12-20 (CALC)); CARBON DIOXIDE 27 mmol/l (22-30); CHLORIDE 105 mmol/l (95-108); CREATININE 0.5 mg/dL (0.5-1.0); GFR FOR AFR.AMER. > 60 ML/MIN (>=60 (CALC)); GFR OTHER RACES > 60 ML/MIN (>=60 (CALC)); MAGNESIUM 2.4 mg/dL (1.6-2.3); SODIUM 136 mmol/l (137-146)
[2021-09-20 08:04] LABS: POTASSIUM 3.7 mmol/l (3.5-5.1)
[2021-09-20] MEDS ORDERED: TERBINAFINE250 M1 PO (08:34)
[2021-09-20] MEDS ORDERED: SERTRALINE100 MG PO (08:35)
[2021-09-20] MEDS ORDERED: PREDNISONE5 MG PO (08:37)
[2021-09-20] MEDS ORDERED: DICLOFENAC SODIUM1 % TOP (08:39)
[2021-09-20] MEDS ORDERED: DONEPEZIL10 MG PO (08:41)
[2021-09-21] VITALS (10 sets, daily range): BP systolic 145–180; BP diastolic 60–77
[2021-09-21 06:16] LABS: HEMATOCRIT 27.2 % (37.0-47.0); HEMOGLOBIN 8.4 g/dl (12.0-16.0); MEAN CELL VOLUME 87.7 fL CALC (80.0-100.0); MEAN CORPUSCULAR HGB 27.1 pG CALC (26.0-32.0); MEAN CORPUSCULAR HGB CONC 30.9 g/dL CAL (32.0-36.0); RED BLOOD COUNT 3.1 mill/uL (4.20-5.60)
[2021-09-21 06:52] LABS: ANION GAP 9 (6-22 (CALC)); BUN 13 mg/dL (8-23); BUN/CREATININE RATIO 22 (12-20 (CALC)); CARBON DIOXIDE 24 mmol/l (22-30); CHLORIDE 102 mmol/l (95-108); CREATININE 0.6 mg/dL (0.5-1.0); GFR FOR AFR.AMER. > 60 ML/MIN (>=60 (CALC)); GFR OTHER RACES > 60 ML/MIN (>=60 (CALC)); POTASSIUM 4.1 mmol/l (3.5-5.1); SODIUM 132 mmol/l (137-146)
[2021-09-22] VITALS (9 sets, daily range): BP systolic 141–195; BP diastolic 46–82
[2021-09-22 05:44] LABS: ANION GAP 7 (6-22 (CALC)); BUN 15 mg/dL (8-23); BUN/CREATININE RATIO 25 (12-20 (CALC)); CARBON DIOXIDE 26 mmol/l (22-30); CHLORIDE 106 mmol/l (95-108); CREATININE 0.6 mg/dL (0.5-1.0); GFR FOR AFR.AMER. > 60 ML/MIN (>=60 (CALC)); GFR OTHER RACES > 60 ML/MIN (>=60 (CALC)); MAGNESIUM 2.1 mg/dL (1.6-2.3); POTASSIUM 3.9 mmol/l (3.5-5.1); SODIUM 135 mmol/l (137-146)
[2021-09-22 05:53] LABS: HEMATOCRIT 28.4 % (37.0-47.0); HEMOGLOBIN 8.9 g/dl (12.0-16.0); MEAN CELL VOLUME 85.5 fL CALC (80.0-100.0); MEAN CORPUSCULAR HGB 26.8 pG CALC (26.0-32.0); MEAN CORPUSCULAR HGB CONC 31.3 g/dL CAL (32.0-36.0); RED BLOOD COUNT 3.32 mill/uL (4.20-5.60); RED CELL DISTRI WIDTH 18.1 % (11.5-15.5)
[2021-09-22] MEDS ORDERED: OMNICEF300 MG PO (09:27)
[2021-09-22] MEDS ORDERED: COZAAR100 MG PO (09:28)
== END 2021-09-22 12:12 | disposition home health service (06) | DRG 690 ==
LOC: ED 13:44 → ED-I 20:06 → MS2 21:06 → ED 21:06 → ICU 21:06 → MS2 09-20 11:15
PROVIDERS: Family Medicine; ADMIT Internal Medicine; ATTEND Internal Medicine
DX: N39.0 Urinary tract infection, site not specified (principal); E87.1 Hypo-osmolality and hyponatremia; I42.9 Cardiomyopathy, unspecified; E87.6 Hypokalemia; I10 Essential (primary) hypertension; E11.9 Type 2 diabetes mellitus without complications; I71.4 Abdominal aortic aneurysm, without rupture; R09.02 Hypoxemia; M06.9 Rheumatoid arthritis, unspecified; K21.9 Gastro-esophageal reflux disease without esophagitis; F41.9 Anxiety disorder, unspecified; F32.A Depression, unspecified; B96.20 Unspecified Escherichia coli [E. coli] as the cause of diseases classified elsewhere; Z87.440 Personal history of urinary (tract) infections; Z87.442 Personal history of urinary calculi; Z88.0 Allergy status to penicillin; Z79.52 Long term (current) use of systemic steroids; Z20.822 Contact with and (suspected) exposure to COVID-19
CPT/HCPCS: J1650; J3475

== ENCOUNTER 2021-09-28 12:57 | Emergency (ER) | payer MEDICARE ==
[~2021-09-28] VITALS: Ht 157.5 cm; Wt 50.0 kg
[~2021-09-28 12:57] MED LIST changes: +COZAAR100 MG PO; +HYDROCODONE BIT1 TA7 PO; +LORAZEPAM0.5 MG PO; +LOSARTAN/HCT1 TA2 PO; +OMNICEF300 MG PO; +TERBINAFINE250 M1 PO
[2021-09-28 13:59] LABS: HEMATOCRIT 31.3 % (37.0-47.0); HEMOGLOBIN 9.4 g/dl (12.0-16.0); IMMATURE GRANULOCYTES 0.6 % (0.0-5.0); MEAN CELL VOLUME 88.7 fL CALC (80.0-100.0); MEAN CORPUSCULAR HGB 26.6 pG CALC (26.0-32.0); NEUT# 7.05 thou/uL (2.00-7.15); RED BLOOD COUNT 3.53 mill/uL (4.20-5.60); RED CELL DISTRI WIDTH 17.6 % (11.5-15.5)
[2021-09-28 14:12] LABS: URINE BILIRUBIN - DIPSTICK NEGATIVE (NEGATIVE); URINE BLOOD DIPSTICK NEGATIVE (NEGATIVE); URINE COLOR YELLOW; URINE GLUCOSE - DIPSTICK NEGATIVE (NEGATIVE); URINE KETONE NEGATIVE (NEGATIVE); URINE LEUK ESTERASE NEGATIVE (NEGATIVE); URINE PROTEIN - DIPSTICK NEGATIVE (NEG-TRACE); URINE UROBILINOGEN - DIPSTICK 0.2 E.U./dL (0.2)
[2021-09-28 14:15] LABS: ALBUMIN 3.4 g/dL (3.2-5.0); ALKALINE PHOSPHATASE 58 u/l (38-126); ANION GAP 11 (6-22 (CALC)); BUN 15 mg/dL (8-23); BUN/CREATININE RATIO 17 (12-20 (CALC)); CARBON DIOXIDE 27 mmol/l (22-30); CHLORIDE 106 mmol/l (95-108); CREATININE 0.9 mg/dL (0.5-1.0); GFR FOR AFR.AMER. > 60 ML/MIN (>=60 (CALC)); GFR OTHER RACES > 60 ML/MIN (>=60 (CALC)); SGOT/AST 21 u/l (9-36); SODIUM 139 mmol/l (137-146); TOTAL PROTEIN 5.8 g/dL (6.3-8.2)
[2021-09-28 14:19] LABS: URINE NITRITE - DIPSTICK NEGATIVE (Negative)
[2021-09-28 14:19] LABS: BILIRUBIN, TOTAL 0.3 mg/dL (0.0-1.4)
[2021-09-28] MEDS ORDERED: AMLODIPINE BESYL5 MG PO (16:12)
[2021-09-28 17:17] VITALS: BP 142/82
== END 2021-09-28 17:52 | disposition home or self-care (01) ==
LOC: ED 12:57
PROVIDERS: Nurse Practitioner
DX: I10 Essential (primary) hypertension (principal); E11.9 Type 2 diabetes mellitus without complications; M06.9 Rheumatoid arthritis, unspecified; J45.909 Unspecified asthma, uncomplicated; K21.9 Gastro-esophageal reflux disease without esophagitis; F41.9 Anxiety disorder, unspecified; F32.A Depression, unspecified; E78.00 Pure hypercholesterolemia, unspecified; Z87.440 Personal history of urinary (tract) infections; Z87.442 Personal history of urinary calculi

== ENCOUNTER 2021-12-25 20:51 | Emergency (ER) | payer MEDICARE ==
[2021-12-25] VITALS (7 sets, daily range): BP systolic 126–155; BP diastolic 53–130
[~2021-12-25] VITALS: Ht 157.5 cm; Wt 63.0 kg
[~2021-12-25 20:51] MED LIST changes: +AMLODIPINE BESYL5 MG PO
[2021-12-25 22:06] LABS: HEMATOCRIT 32.8 % (37.0-47.0); IMMATURE GRANULOCYTES 0.2 % (0.0-5.0); MEAN CELL VOLUME 88.6 fL CALC (80.0-100.0); MEAN CORPUSCULAR HGB 29.7 pG CALC (26.0-32.0); MEAN CORPUSCULAR HGB CONC 33.5 g/dL CAL (32.0-36.0); NEUT# 6.65 thou/uL (2.00-7.15); RED BLOOD COUNT 3.7 mill/uL (4.20-5.60); RED CELL DISTRI WIDTH 17.6 % (11.5-15.5)
[2021-12-25 22:18] LABS: ALBUMIN 3.6 g/dL (3.2-5.0); ALKALINE PHOSPHATASE 66 u/l (38-126); BILIRUBIN, TOTAL 0.3 mg/dL (0.0-1.4); BUN 19 mg/dL (8-23); BUN/CREATININE RATIO 21 (12-20 (CALC)); CARBON DIOXIDE 26 mmol/l (22-30); CHLORIDE 104 mmol/l (95-108); CREATININE 0.9 mg/dL (0.5-1.0); GFR FOR AFR.AMER. > 60 ML/MIN (>=60 (CALC)); GFR OTHER RACES > 60 ML/MIN (>=60 (CALC)); SGOT/AST 27 u/l (9-36); SODIUM 137 mmol/l (137-146)
[2021-12-25 22:19] LABS: ANION GAP 10 (6-22 (CALC))
[2021-12-25 22:32] LABS: MYOGLOBIN 26 ng/mL (0 - 62)
[2021-12-25 22:39] LABS: PROTHROMBIN TIME 10.2 SECONDS (9.0-12.5)
== END 2021-12-25 23:01 | disposition home or self-care (01) ==
LOC: ED 20:51
PROVIDERS: Emergency Medicine
DX: R04.0 Epistaxis (principal); E87.6 Hypokalemia; I10 Essential (primary) hypertension; E11.9 Type 2 diabetes mellitus without complications; J45.909 Unspecified asthma, uncomplicated; M06.9 Rheumatoid arthritis, unspecified; K21.9 Gastro-esophageal reflux disease without esophagitis; F41.9 Anxiety disorder, unspecified; F32.A Depression, unspecified

== ENCOUNTER 2022-05-01 22:36 | Observation (INO) | payer MEDICARE ==
[~2022-05-01] VITALS: Ht 157.5 cm; Wt 53.8 kg
[2022-05-01 22:40] VITALS: BP 142/74
[2022-05-01 22:46] VITALS: BP 157/66
[2022-05-01 23:00] VITALS: BP 164/56
[2022-05-01 23:16] VITALS: BP 157/118
[2022-05-01 23:29] LABS: BASO% 0.3 % (0-3); IMMATURE GRANULOCYTES 0.1 % (0.0-5.0); LYMPH% 12.3 % (15-41); MEAN CELL VOLUME 89.4 fL CALC (80.0-100.0); MEAN CORPUSCULAR HGB 28.9 pG CALC (26.0-32.0); MEAN CORPUSCULAR HGB CONC 32.3 g/dL CAL (32.0-36.0); MONO% 7.6 % (2-13); NEUT# 6.1 thou/uL (2.00-7.15); NEUT% 78.7 % (42-76); RED BLOOD COUNT 3.67 mill/uL (4.20-5.60); RED CELL DISTRI WIDTH 15.2 % (11.5-15.5)
[2022-05-01 23:30] VITALS: BP 166/75
[2022-05-01 23:30] LABS: HEMATOCRIT 32.8 % (37.0-47.0); HEMOGLOBIN 10.6 g/dl (12.0-16.0)
[2022-05-01 23:41] LABS: ALBUMIN 3.7 g/dL (3.2-5.0); ALKALINE PHOSPHATASE 74 u/l (38-126); ANION GAP 11 (6-22 (CALC)); BUN 16 mg/dL (8-23); BUN/CREATININE RATIO 17 (12-20 (CALC)); CARBON DIOXIDE 25 mmol/l (22-30); CHLORIDE 103 mmol/l (95-108); CREATININE 0.9 mg/dL (0.5-1.0); GFR FOR AFR.AMER. > 60 ML/MIN (>=60 (CALC)); GFR OTHER RACES > 60 ML/MIN (>=60 (CALC)); LIPASE 54 u/l (23-300); POTASSIUM 3.3 mmol/l (3.5-5.1); SGOT/AST 23 u/l (9-36); SODIUM 135 mmol/l (137-146); TOTAL PROTEIN 6.6 g/dL (6.3-8.2)
[2022-05-01 23:43] LABS: BILIRUBIN, TOTAL 0.3 mg/dL (0.0-1.4)
[2022-05-02] VITALS (13 sets, daily range): BP systolic 119–180; BP diastolic 42–123
[2022-05-02] MEDS ORDERED: OXYBUTYNIN CHLOR5 M1 PO (03:19)
[2022-05-02] MEDS ORDERED: FOLIC ACID1 M1 (03:20)
[2022-05-02] MEDS ORDERED: ALL DAY ALLG10 MG PO (03:21)
[2022-05-02] MEDS ORDERED: POTASSIUM CHLO20 ME2 PO (03:22)
[2022-05-02] MEDS ORDERED: TRAZODONE HYDR150 MG (03:23)
[2022-05-02] MEDS ORDERED: FUROSEMIDE20 MG PO (03:23)
[2022-05-02] MEDS ORDERED: METOPROLOL SUCC50 MG PO (03:29)
[2022-05-02] MEDS ORDERED: LOSARTAN POTAS100 MG PO (03:29)
[2022-05-02] MEDS ORDERED: LORAZEPAM0.5 MG PO (03:30)
[2022-05-02] MEDS ORDERED: HYDROXYCHLOR200 M1 PO (03:31)
[2022-05-02] MEDS ORDERED: ALBUTEROL108 MCG/AC (03:31)
[2022-05-02] MEDS ORDERED: DONEPEZIL10 MG PO (03:32)
[2022-05-02] MEDS ORDERED: PREDNISONE5 MG PO (03:32)
[2022-05-02 11:52] LABS: URINE BILIRUBIN - DIPSTICK NEGATIVE (NEGATIVE); URINE BLOOD DIPSTICK NEGATIVE (NEGATIVE); URINE COLOR YELLOW; URINE GLUCOSE - DIPSTICK NEGATIVE (NEGATIVE); URINE KETONE NEGATIVE (NEGATIVE); URINE LEUK ESTERASE NEGATIVE (NEGATIVE); URINE NITRITE - DIPSTICK NEGATIVE (Negative); URINE PROTEIN - DIPSTICK NEGATIVE (NEG-TRACE); URINE UROBILINOGEN - DIPSTICK 0.2 E.U./dL (0.2)
== END 2022-05-02 17:18 ==
LOC: ED 22:36 → ED-I 05-02 02:13 → ED 05-02 02:24 → MS2 05-02 02:25
PROVIDERS: Internal Medicine; ADMIT Internal Medicine; ATTEND Internal Medicine
DX: R53.1 Weakness (principal); R42 Dizziness and giddiness; E87.6 Hypokalemia; I10 Essential (primary) hypertension; E11.9 Type 2 diabetes mellitus without complications; I25.10 Atherosclerotic heart disease of native coronary artery without angina pectoris; K52.9 Noninfective gastroenteritis and colitis, unspecified; M06.9 Rheumatoid arthritis, unspecified; J45.909 Unspecified asthma, uncomplicated; M19.90 Unspecified osteoarthritis, unspecified site; K21.9 Gastro-esophageal reflux disease without esophagitis; F41.9 Anxiety disorder, unspecified; F32.A Depression, unspecified; E78.00 Pure hypercholesterolemia, unspecified; Z87.440 Personal history of urinary (tract) infections; Z87.442 Personal history of urinary calculi

== ENCOUNTER 2023-11-11 10:33 | Inpatient (IN) | payer MEDICARE ==
[~2023-11-11] VITALS: Ht 157.5 cm; Wt 43.8 kg
[2023-11-11] VITALS (20 sets, daily range): BP systolic 111–162; BP diastolic 43–112
[~2023-11-11 10:33] MED LIST changes: +ALBUTEROL108 MCG/AC; +ALL DAY ALLG10 MG PO; +FOLIC ACID1 M1; +FUROSEMIDE20 MG PO; +LOSARTAN POTAS100 MG PO; +OXYBUTYNIN CHLOR5 M1 PO; +POTASSIUM CHLO20 ME2 PO; +TRAZODONE HYDR150 MG PO
--- NOTE | 2023-11-11 10:33 | NUR ---
PT BROUGHT BACK TO ER ROOM 10 VIA EMS
[2023-11-11] MEDS ORDERED: SODIUM CHLORIDE 0.9% 1,000 ML IV ONE (10:45)
[2023-11-11] MEDS ORDERED: AZTREONAM 1 GM in SODIUM CHLORIDE 0.9% 50 ML IV ONE (10:45)
[2023-11-11 11:19] LABS: URINE BILIRUBIN - DIPSTICK Negative (NEGATIVE); URINE BLOOD DIPSTICK Negative (NEGATIVE); URINE GLUCOSE - DIPSTICK Negative (NEGATIVE); URINE KETONE Negative (NEGATIVE); URINE LEUK ESTERASE Negative (NEGATIVE); URINE NITRITE - DIPSTICK Negative (Negative); URINE PH 5.5 (4.5-8.0); URINE PROTEIN - DIPSTICK Negative (NEG-TRACE); URINE UROBILINOGEN - DIPSTICK 0.2 E.U./dL (0.2)
[2023-11-11 11:23] LABS: URINE COLOR Yellow
--- NOTE | 2023-11-11 12:00 | NUR ---
PATIENT LYING IN BED RESTING WITH NO ACUTE DISTRESS NOTED. PURE WICK PUT IN PLACE AT THIS TIME.
[2023-11-11 12:06] LABS: BASO% 0.2 % (0-3); EOS% 0.4 % (0-8); HEMATOCRIT 34.1 % (37.0-47.0); HEMOGLOBIN 10.5 g/dl (12.0-16.0); IMMATURE GRANULOCYTES 0.2 % (0.0-5.0); LYMPH% 4.2 % (15-41); MEAN CORPUSCULAR HGB 25.1 pG CALC (26.0-32.0); MEAN CORPUSCULAR HGB CONC 30.8 g/dL CAL (32.0-36.0); MONO% 2.8 % (2-13); NEUT# 11.75 thou/uL (2.00-7.15); NEUT% 92.2 % (42-76); RED BLOOD COUNT 4.18 mill/uL (4.20-5.60); RED CELL DISTRI WIDTH 16.8 % (11.5-15.5)
[2023-11-11 12:07] LABS: INTERNATIONAL NORMALIZED RATIO 1.2 RATIO (0.7-1.3)
[2023-11-11 12:12] LABS: PROTHROMBIN TIME 10.9 SECONDS (9.0-12.5)
[2023-11-11 12:13] LABS: MEAN CELL VOLUME 81.6 fL CALC (80.0-100.0)
[2023-11-11 12:14] LABS: ALBUMIN 3.7 g/dL (3.2-5.0); ALKALINE PHOSPHATASE 80 u/l (38-126); ANION GAP 11 (6-22 (CALC)); BILIRUBIN, TOTAL 0.4 mg/dL (0.02-1.3); BUN 15 mg/dL (8-23); BUN/CREATININE RATIO 22 (12-20 (CALC)); CARBON DIOXIDE 23 mmol/l (22-30); CHLORIDE 112 mmol/l (95-108); CREATININE 0.7 mg/dL (0.5-1.0); ESTIMATED GFR 90 ML/MIN (>=90 (CALC)); LIPASE 69 u/l (23-300); MAGNESIUM 1.8 mg/dL (1.6-2.3); POTASSIUM 3.9 mmol/l (3.5-5.1); SGOT/AST 22 u/l (9-36); SODIUM 142 mmol/l (137-146); TOTAL PROTEIN 6.8 g/dL (6.3-8.2)
[2023-11-11] MEDS ORDERED: KETOROLAC TROMETHAMINE 30 MG/ML SDV IV ONE (12:25)
[2023-11-11] MEDS ORDERED: MAGNESIUM HYDROXIDE 30 ML UDC PO PRN (13:55)
[2023-11-11] MEDS ORDERED: ACETAMINOPHEN 325 MG/TAB PO PRN (13:55)
[2023-11-11] MEDS ORDERED: SODIUM CHLORIDE 0.9% 1,000 ML IV PRN (13:55)
[2023-11-11] MEDS ORDERED: Levofloxacin 750 mg Premix 150 ML IV SCH (14:00)
[2023-11-11] MEDS ORDERED: MACRODANTIN100 MG PO (14:04)
[2023-11-11] MEDS ORDERED: ACYCLOVIR400 MG PO (14:05)
[2023-11-11] MEDS ORDERED: OXYBUTYNIN CHLOR5 M2 (14:06)
[2023-11-11] MEDS ORDERED: ZOFRAN4 MG/TAB PO (14:08)
--- NOTE | 2023-11-11 14:24 | NUR ---
REPORT GIVEN TO CORTNEY MURCIA.
--- NOTE | 2023-11-11 14:25 | NUR ---
PT ARRIVED TO THE UNIT VIA STRETCHER ACCOMPANIED BY ER NURSE AND PT'S DAUGHTER, PT IS A&O X3, PUPILS PERRL, RESP. ARE EVEN AND UNLABORED, LUNG SOUNDS ARE DIMINISHED, HEART SOUNDS ARE NORMAL S1 S2, ABD DISTENDED AND SOFT WITH ACTIVE BOWEL SOUNDS, STRONG RADIAL PULSES, WEAK PEDAL PULSES, 230G LFA EMS SITE, PT ORIENTED TO THE ROOM AND CALL GREENE SYSTEM, SAFETY MEASURES INFORCED, CALL GREENE WITHIN REACH
--- NOTE | 2023-11-11 14:30 | NUR ---
PATIENT TRANSPORTED TO [facility] SURGE ROOM 278 VIA STRETCHER WITH TELE #[address]
--- NOTE | 2023-11-11 14:46 | NUR ---
patient weight, and vital signs; wt-43.8 t-97.9 p-74 resp-20 b/p-128/47 o2-97 on oxygen
--- NOTE | 2023-11-11 17:00 | NUR ---
SETUP ASSISTANCE PROVIDED WITH DINNER TRAY
--- NOTE | 2023-11-11 18:00 | NUR ---
PT LAYING IN BED RESTING, DENIES ANY NEEDS AT THIS TIME, CALL GREENE WITHIN REACH
[2023-11-11] MEDS ORDERED: ENOXAPARIN SODIUM 40 MG/0.4 ML SYR SC SCH (21:00)
[2023-11-11] MEDS ORDERED: BUSPAR30 MG PO (21:19)
[2023-11-11] MEDS ORDERED: PLAVIX75 MG PO (21:21)
[2023-11-11] MEDS ORDERED: TOPROL XL50 MG PO (21:25)
[2023-11-11] MEDS ORDERED: TRAMADOL HYDROC50 M1 PO (21:27)
[2023-11-11] MEDS ORDERED: OMEPRAZOLE DR40 MG PO (21:28)
[2023-11-11] MEDS ORDERED: CLOPIDOGREL BISULFATE 75 MG/TAB TAB PO SCH (21:45)
[2023-11-11] MEDS ORDERED: METOPROLOL SUCCINATE 50 MG/TAB PO SCH (21:46)
[2023-11-11] MEDS ORDERED: SERTRALINE HCL 50 MG/TAB PO SCH (21:50)
[2023-11-12] VITALS (10 sets, daily range): BP systolic 111–184; BP diastolic 43–85
--- NOTE | 2023-11-12 03:30 | NUR ---
PT IN BED WATCHING TV DENIES PAIN OR DISCOMFRT. NO S/S OF DISTRESS NOTED, NO NEEDS OR CONNCERNS VOICED, CALL LIGHT IN REACH. AND BED IN LOWSET POSITION.
[2023-11-12 04:57] LABS: MEAN CELL VOLUME 81.1 fL CALC (80.0-100.0); MEAN CORPUSCULAR HGB 24.9 pG CALC (26.0-32.0); MEAN CORPUSCULAR HGB CONC 30.7 g/dL CAL (32.0-36.0); RED BLOOD COUNT 3.33 mill/uL (4.20-5.60); RED CELL DISTRI WIDTH 16.6 % (11.5-15.5)
[2023-11-12 05:07] LABS: HEMOGLOBIN 8.3 g/dl (12.0-16.0)
[2023-11-12 05:16] LABS: BILIRUBIN, TOTAL 0.4 mg/dL (0.02-1.3); CREATININE 0.6 mg/dL (0.5-1.0); MAGNESIUM 1.6 mg/dL (1.6-2.3); POTASSIUM 3.3 mmol/l (3.5-5.1)
[2023-11-12 05:20] LABS: ALBUMIN 2.7 g/dL (3.2-5.0); TOTAL PROTEIN 5.1 g/dL (6.3-8.2)
--- NOTE | 2023-11-12 07:47 | NUR ---
PATIENT A/OX3; ON 2L OF ; NOT 02 DEPENDEDNT; BREATHING UNLABORED; DENIED ANY V/D; DOES STATES SHE DID HAVE SOME NAUSEA OVERNIGHT; TELE LEADS ARE ATTACHED AND WORKINGG; FEMALE PURWICK WORKING WITH YELLOW URINE; IV SITE IN LEFT WRIST CLEAN AND INTACT RUNNING WITH NS@100 WITH NO ISSUES; PATEINT ENOCURAGED TO TRY TO SIT IN CHAIR NEXT TO BED FOR BREAKFAST; CALL LIGHT WITHIN REACH,VERBALIZED UNDERSTANDING ON HOW TO USE, PERSONAL ITEMS WITIN REACH,BED INLOWEST POSTION;NO COMPLAINTS AT THIS TIME; BSC NEXT TO BED
[2023-11-12] MEDS ORDERED: POTASSIUM CHLORIDE 20 MEQ/TAB PO SCH (08:00)
[2023-11-12] MEDS ORDERED: LOSARTAN Potassium 50 MG/TAB PO SCH (09:00)
[2023-11-12] MEDS ORDERED: traMADol HCL 50 MG/TAB PO SCH (09:00)
[2023-11-12] MEDS ORDERED: PANTOPRAZOLE SODIUM Sesquihydr 40 MG/TAB PO SCH (09:00)
[2023-11-12] MEDS ORDERED: OXYBUTYNIN 5 MG/TAB PO SCH (09:00)
--- NOTE | 2023-11-12 12:15 | NUR ---
patient a/o x3; on 2 L of ; breathing unlabored and even; denied any pain; denied any n/d/v at this time; no s/s of distress at this time; patient sitting on side of bed eating lunch; iv site clean and intact running with NS at this time; tele leads are attached and working with no issues; call ight within reach,verbalized understanding on how to use, personal items within reach, bed in lowest postion; bsc next to bed withimn reach, no complaints at this time
--- NOTE | 2023-11-12 12:26 | NUR ---
spoke to patient daughter regarding patient status no complaints at this time
--- NOTE | 2023-11-12 16:23 | NUR ---
patient a/o x3; on 2L of ; breathing unlabored and even; denied any n/d/v at this time; states her body hurts with pain scale 5/10, medicated per emar; iv siet clean and intact running with NS @100; tele leads are attached and working with no issues; patient laying in bed semi butler postion at this time; bsc next to bed; female mia working with no issues;call light within reach,verbalized understanding on how to use, personal items within reach, bed in lowest postion; no complainst at this time
--- NOTE | 2023-11-12 19:17 | NUR ---
REPORT RECEIVED FROM PREVIOUS NURSE. PT IS CURRENTLY RESTING AT BEDSIDE. CALL LIGHT IS WITHIN REACH. NO COMPALINTS OF PAIN AT THIS TIME.
[2023-11-12] MEDS ORDERED: traZODone HCL 50 MG/TAB PO SCH (21:00)
--- NOTE | 2023-11-12 23:58 | NUR ---
PT MEDICATED FOR FEVER. PT IS CURRENTLY IN BED WATCHING TV. CALL LIGHT IS WITHIN REACH.
[2023-11-13] VITALS (10 sets, daily range): BP systolic 136–167; BP diastolic 63–81
--- NOTE | 2023-11-13 00:54 | NUR ---
PATIENT TEMPERATURE RECHECKED. PT'S TEMP DROPPED TO 99.0. PT IS AWAKE WATCHING TV. CALL LIGHT IS WITHIN REACH.
--- NOTE | 2023-11-13 04:40 | NUR ---
PATIENT IS CURRENTLY RESTING IN BED WITH CALL LIGHT WITHIN REACH
[2023-11-13 05:47] LABS: HEMATOCRIT 29.2 % (37.0-47.0); MEAN CELL VOLUME 82.5 fL CALC (80.0-100.0); MEAN CORPUSCULAR HGB 25.4 pG CALC (26.0-32.0); MEAN CORPUSCULAR HGB CONC 30.8 g/dL CAL (32.0-36.0); RED BLOOD COUNT 3.54 mill/uL (4.20-5.60); RED CELL DISTRI WIDTH 17.1 % (11.5-15.5)
[2023-11-13 06:07] LABS: ALBUMIN 2.7 g/dL (3.2-5.0); CREATININE 0.6 mg/dL (0.5-1.0); MAGNESIUM 1.7 mg/dL (1.6-2.3); POTASSIUM 3.4 mmol/l (3.5-5.1); TOTAL PROTEIN 5.2 g/dL (6.3-8.2)
[2023-11-13 06:08] LABS: BILIRUBIN, TOTAL 0.7 mg/dL (0.02-1.3)
--- NOTE | 2023-11-13 06:34 | NUR ---
PT IS CURRENTLY RESTING IN BED WITH CALL LIGHT WITHIN REACH
--- NOTE | 2023-11-13 07:32 | NUR ---
Patient lying semi-fowlers in bed watching tv. IV in LFA infusing NS @100mls; site clean and intact. Tele intact. Purewick outputing urine. Assessment completed. Denies any N/D/V at this time. States to have left sided pain; medication reviewed. Bed in lowest position. Personal items within reach. Call light within reach; verbalized understanding of use.
--- NOTE | 2023-11-13 12:00 | NUR ---
PATIENT LYING SEMI-FOWLERS IN BED, WATCHING TV. IV IN LFA INFUSING NS @100MLS; SITE CLEAN AND INTACT. TELE INTACT. PUREWICK IN PLACE. DENIES ANY N/D/V AT THIS TIME. REPORTS PAIN 7 OUT OF 10; MEDICATION REVIEWED WITH PT. PERSONAL ITEMS WITHIN REACH. BED IN LOWEST POSITION. CALL LIGHT WITHIN REACH, PT VERBALIZED UNDERSTANDING OF USE.
[2023-11-13] MEDS ORDERED: NYSTATIN (Mouth-Throat) 500 MU/UDC UDC PO SCH (13:00)
[2023-11-13] MEDS ORDERED: Levofloxacin 750 mg Premix 150 ML IV SCH (14:00)
--- NOTE | 2023-11-13 16:00 | NUR ---
PATIENT RESTING IN BED, WATCHING TV. IV INFUSION OF NS @100MLS IS COMPLETE; SITE CLEAN AND INTACT. TELE INTACT. PUREWICK STILL IN PLACE. PERSONAL ITEMS WITHIN REACH. DENIES ANY N/D/V AT THIS TIME. DENIES ANY PAIN. BED IN LOWEST POSITION. CALL LIGHT WITHIN REACH; VERBALIZED UNDERSTANDING OF USE.
--- NOTE | 2023-11-13 19:45 | NUR ---
PT RESTING IN BED STATING THAT SHE IS ALWAYS IN PAIN CURRENTLY 8/10 GENERALIZED ALL OVER PER PT. VS WNL ON NC 2L. NO EDEMA NOTED. SCATTERED BRUISING AND SCABS. IV SITE FLUSHED WORKING PROPERLY INFUSION ONGOING. CALL LIGHT WITHIN REACH. PLAN OF CARE ONGOING.
[2023-11-14] VITALS (10 sets, daily range): BP systolic 134–168; BP diastolic 56–80
--- NOTE | 2023-11-14 00:46 | NUR ---
PT RESTING NO DISTRESS NOTED ON EXAM. CALL LIGHT WITHIN REACH. PLAN OF CARE ONGOING.
--- NOTE | 2023-11-14 04:20 | NUR ---
PT RESTING NO DISTRESS NOTED ON EXAM. CALL LIGHT WITHIN REACH. PLAN OF CARE ONGOING. IV SITE CHECKED WORKING PROPERLY IV INFUSION ONGOING.
[2023-11-14 05:36] LABS: ALBUMIN 2.4 g/dL (3.2-5.0); BASO% 0.2 % (0-3); BILIRUBIN, TOTAL 0.6 mg/dL (0.02-1.3); CREATININE 0.6 mg/dL (0.5-1.0); EOS% 1.5 % (0-8); HEMOGLOBIN 8.3 g/dl (12.0-16.0); IMMATURE GRANULOCYTES 0.7 % (0.0-5.0); LYMPH% 7.2 % (15-41); MAGNESIUM 1.6 mg/dL (1.6-2.3); MEAN CELL VOLUME 81.8 fL CALC (80.0-100.0); MEAN CORPUSCULAR HGB 26.1 pG CALC (26.0-32.0); MEAN CORPUSCULAR HGB CONC 31.9 g/dL CAL (32.0-36.0); MONO% 4.3 % (2-13); NEUT# 7.82 thou/uL (2.00-7.15); NEUT% 86.1 % (42-76); POTASSIUM 3.4 mmol/l (3.5-5.1); RED BLOOD COUNT 3.18 mill/uL (4.20-5.60); RED CELL DISTRI WIDTH 17.1 % (11.5-15.5); TOTAL PROTEIN 4.9 g/dL (6.3-8.2)
--- NOTE | 2023-11-14 07:39 | NUR ---
patient a/o x3; on 2l of ; breathing unlabored and even; denied any pain; denied needing anything; denied any n/d/v at this time; iv site clean and intact running with NS @100; tele leads are attached and working with no issues; call light within reach,verbalized understanding on how to use, personal items within reach, bed in lowest postion; patient laying in bed with no issue; no complaints at this time
--- NOTE | 2023-11-14 08:02 | NUR ---
BOOKED A PULMONOLOGY CONSUYLT WITH DR GRIFFIN VIA THE [facility] AT 0802 HRS.
[2023-11-14] MEDS ORDERED: POTASSIUM CHLORIDE 20 MEQ/TAB PO SCH (09:00)
--- NOTE | 2023-11-14 09:56 | NUR ---
changed pts PW @0940 when placed on BSC.
[2023-11-14] MEDS ORDERED: FUROSEMIDE 40 MG/4 ML SDV IV SCH (11:00)
--- NOTE | 2023-11-14 12:11 | NUR ---
patient resting in bed; 2l of 02; breathing unlabored; tele leads are attached and working iv site clean and intact running with NS@100; bsc next to bed; patient in bed supine postion;call light within reach, bed in lowest postion; no s/s of distress
--- NOTE | 2023-11-14 12:34 | NUR ---
PULMONARY CONSULTS STARTED
--- NOTE | 2023-11-14 16:29 | NUR ---
patient a/o x3; n 2l of 02; no s/s of distress at ths time; denied any pain; denied any complaints at this time; denied any n/d/v at this time; tele leads are attached and working with no issues; iv site clean and intact running with ns @100; patient sitting in bed semi folwer postion; bsc within reach, female mia working with no issues; call light within reach,verbalized understanding on how to use, personal items within reach, bed inlowest postion;no complaints
--- NOTE | 2023-11-14 17:30 | NUR ---
PT TEMP ICE PACKS PROVIDED BY [facility]/SAFTE[facility] PRECAUTION IN PLACE CALL LIGHT WITHIN REAC
--- NOTE | 2023-11-14 17:33 | NUR ---
PT HAD A FEVER OF 100.7 @1721. NOTIFIED RN SAMIR @1730. PROVIDED INSTANT ICE PACK X2 TO UNDERARMS OF PT TO BRING DOWN FEVER.
--- NOTE | 2023-11-14 20:00 | NUR ---
pt examined , left IV leakng Iv removed new 22 in right forearm. pt toleratd well. 1 stick. pt had 02 out of nose asked her if she wore O2 at home pt said yes O2 put back in nose. lungs dininished all drake. ICS at bedside pt encouraged to use ICS pt stated " she would later". lotion provided for dry skin , purewick and brief intact. pt temp 100.7 orally. IV fluids NS leonie at 50cc/hr , pt requested soda to drink with pm pills. alox4, pt reports not having a BM in 2 days , pt stated she had " the white stuff" on dayshift. offered milk of mag, pt declined. abs soft non distended BSx4. pt reports pasing gas. call adler within reach.
[2023-11-15] VITALS (7 sets, daily range): BP systolic 130–154; BP diastolic 52–76
--- NOTE | 2023-11-15 | NUR ---
pt assessed , IV running at 50cc/hr of 0.9% NS, pt resting comfortably. all needs met. call adler within rech . pt on sleep lab technologist. bed alarm on . drinks on bedside table within reach.
--- NOTE | 2023-11-15 04:00 | NUR ---
pt rouunded on , respirations easy and unlabred, O2 on NS going in IV at 50cc/hr, senior mobile developer on all safety measures in place, purewick in place. brief on . call adler within reach.
[2023-11-15 05:01] LABS: BASO% 0.3 % (0-3); EOS% 2.2 % (0-8); HEMATOCRIT 27.1 % (37.0-47.0); HEMOGLOBIN 8.4 g/dl (12.0-16.0); IMMATURE GRANULOCYTES 0.2 % (0.0-5.0); LYMPH% 10.1 % (15-41); MEAN CELL VOLUME 81.6 fL CALC (80.0-100.0); MEAN CORPUSCULAR HGB 25.3 pG CALC (26.0-32.0); MONO% 5.9 % (2-13); NEUT# 5.25 thou/uL (2.00-7.15); NEUT% 81.3 % (42-76); RED BLOOD COUNT 3.32 mill/uL (4.20-5.60); RED CELL DISTRI WIDTH 17.1 % (11.5-15.5)
[2023-11-15 05:10] LABS: ALBUMIN 2.6 g/dL (3.2-5.0); CREATININE 0.6 mg/dL (0.5-1.0); MAGNESIUM 1.7 mg/dL (1.6-2.3); POTASSIUM 3.8 mmol/l (3.5-5.1); TOTAL PROTEIN 5.1 g/dL (6.3-8.2)
[2023-11-15 05:11] LABS: BILIRUBIN, TOTAL 0.3 mg/dL (0.02-1.3)
--- NOTE | 2023-11-15 06:16 | NUR ---
critical procal reviewed . current 1.8 previous 2.8 expected value. trending down.
--- NOTE | 2023-11-15 07:30 | NUR ---
Report received from night guard nurse. Patient is sitting in recliner chair, denies any pain. On 2L NC and tolerating, NSR on tele monitor. IV fluids running as ordered. All needs addressed at this time, call light within reach.
--- NOTE | 2023-11-15 07:34 | NUR ---
patient sitting up in recliner with assistance.
[2023-11-15] MEDS ORDERED: DEXTROMETHORPHAN-Guaifenesin 20-200 MG/10 ML UDC PO PRN (09:00)
[2023-11-15] MEDS ORDERED: FUROSEMIDE 40 MG/4 ML SDV IV SCH (09:00)
--- NOTE | 2023-11-15 12:00 | NUR ---
Patient is sitting in recliner chair, denies any pain. On 2L NC, A&Ox4, IV fluids running as ordered. NSR on tele monitor. VS WNL. All needs addressed at this time, call light within reach.
--- NOTE | 2023-11-15 16:00 | NUR ---
Patient is resting in bed, denies any pain. A&Ox4, on 2L NC, NSR on tele monitor, VS WNL, IV fluids running as ordered. All needs addressed at this time, call light within reach.
--- NOTE | 2023-11-15 19:27 | NUR ---
PATIENT IN BED WATCHING TV. BED SIDE REPORT COMPLEAT. A&O X4. ON CONTINUOUS O2 2L NC. EQUAL ROM IN ALL EXTREMITYS. PATIENT HAS A COUGH, COMPLAINS OF CHEST PAIN DUE TO COUGH. BED IN LOWEST POSITION. CALL LIGHT WITHIN REACH.
[2023-11-15] MEDS ORDERED: FLUTICASONE PROPIONATE (Nasal) 50MCG/SPRAY INH PRN (21:10)
[2023-11-15] MEDS ORDERED: ALBUTEROL SULFATE 2.5 MG VIAL IN PRN (21:10)
[2023-11-16 00:07] VITALS: BP 136/57
--- NOTE | 2023-11-16 00:08 | NUR ---
PATIENT IN BED AWAKE WATCHING TV. RESPONDS TO VERBAL STIMULI. CAN MAKE NEEDS KNOWN. NONE NEEDED AT THIS TIME. ON O2 NC 1L. BED AT LOWEST POSITION. CALL LIGHT WITH IN REACH.
[2023-11-16 04:11] VITALS: BP 140/71
--- NOTE | 2023-11-16 04:48 | NUR ---
PATIENT IN BED ASLEEP. EQUAL CHEST RISES, UNLABORD BREATHING, ON CONTINUOUS O2 NC 1L. BED AT LOWEST POSITION. CALL GREENE WITHIN REACH.
[2023-11-16 05:54] LABS: ALBUMIN 2.4 g/dL (3.2-5.0); BILIRUBIN, TOTAL 0.3 mg/dL (0.02-1.3); CREATININE 0.6 mg/dL (0.5-1.0); MAGNESIUM 1.6 mg/dL (1.6-2.3); POTASSIUM 3.4 mmol/l (3.5-5.1); TOTAL PROTEIN 4.8 g/dL (6.3-8.2)
[2023-11-16 06:00] LABS: BASO% 0.5 % (0-3); EOS% 2.7 % (0-8); HEMOGLOBIN 8.1 g/dl (12.0-16.0); IMMATURE GRANULOCYTES 0.5 % (0.0-5.0); LYMPH% 12.3 % (15-41); MEAN CELL VOLUME 81.3 fL CALC (80.0-100.0); MEAN CORPUSCULAR HGB 25.3 pG CALC (26.0-32.0); MEAN CORPUSCULAR HGB CONC 31.2 g/dL CAL (32.0-36.0); MONO% 9.8 % (2-13); NEUT# 3.27 thou/uL (2.00-7.15); NEUT% 74.2 % (42-76); RED BLOOD COUNT 3.2 mill/uL (4.20-5.60)
--- NOTE | 2023-11-16 06:29 | NUR ---
RECEIVED A PHONE CALL FROM LAB CRITICAL PROCAL [phone], TRENDING DOWN, TREATMENT ALREADY IN PLACED.
[2023-11-16 07:24] VITALS: BP 142/73
--- NOTE | 2023-11-16 07:36 | NUR ---
patient resting in bed; on 1L of ; breathing unlabored and even; no visal signs of distress at this time; iv site clean and intact running with NS @50l tele leads are attached and working iwth no issues I/S on bedside table; medication reviwed; call light within reach,bed in lowest postion; bed alarm activated;
--- NOTE | 2023-11-16 07:43 | NUR ---
portable chest xray getting completed at this time
[2023-11-16] MEDS ORDERED: LEVOFLOXACIN750 MG PO (10:16)
[2023-11-16] MEDS ORDERED: Polyethylene Glycol 3350 17 GM/PKT PO SCH (10:30)
[2023-11-16 11:13] VITALS: BP 140/69
== END 2023-11-16 13:19 | disposition home health service (06) | DRG 871 ==
LOC: ED 10:33 → ED-I 11:09 → ED 11:09 → ED-I 11:09 → ED 13:25 → MS2 13:26
PROVIDERS: Family Medicine; Student in an Organized Health Care Education/Training Program; ADMIT Internal Medicine; ATTEND Internal Medicine
DX: A41.9 Sepsis, unspecified organism (principal); J18.9 Pneumonia, unspecified organism; J96.01 Acute respiratory failure with hypoxia; R64 Cachexia; Z68.1 Body mass index [BMI] 19.9 or less, adult; R65.20 Severe sepsis without septic shock; E87.6 Hypokalemia; I10 Essential (primary) hypertension; E11.9 Type 2 diabetes mellitus without complications; I25.10 Atherosclerotic heart disease of native coronary artery without angina pectoris; E78.5 Hyperlipidemia, unspecified; F41.9 Anxiety disorder, unspecified; F32.A Depression, unspecified; M06.9 Rheumatoid arthritis, unspecified; K21.9 Gastro-esophageal reflux disease without esophagitis; Z87.440 Personal history of urinary (tract) infections; Z87.442 Personal history of urinary calculi; Z88.0 Allergy status to penicillin; Z20.822 Contact with and (suspected) exposure to COVID-19
CPT/HCPCS: J1650

== ENCOUNTER 2023-11-21 07:37 | Inpatient (IN) | payer MEDICARE ==
[~2023-11-21] VITALS: Ht 157.5 cm; Wt 44.6 kg
[2023-11-21] VITALS (22 sets, daily range): BP systolic 109–165; BP diastolic 40–83
[~2023-11-21 07:37] MED LIST changes: -ALBUTEROL108 MCG/AC; +ALBUTEROL108 MCG/AC IN; +BUSPAR30 MG PO; +LEVOFLOXACIN750 MG PO; +MACRODANTIN100 MG PO; +OMEPRAZOLE DR40 MG PO; +OXYBUTYNIN CHLOR5 M2; +PLAVIX75 MG PO; +TOPROL XL50 MG PO; +TRAMADOL HYDROC50 M1 PO; +ZOFRAN4 MG/TAB PO
[2023-11-21] MEDS ORDERED: methylPREDNISolone SODIUM SUCC 125 MG/2 ML SDV IV ONE (07:50)
[2023-11-21] MEDS ORDERED: SODIUM CHLORIDE 0.9% 1,000 ML IV ONE (07:50)
[2023-11-21] MEDS ORDERED: ALBUTEROL SULFATE 2.5 MG VIAL IN ONE (07:50)
[2023-11-21] MEDS ORDERED: IPRATROPIUM-Albuterol 0.5MG-2.5MG/3 ML NEB ONE (07:50)
[2023-11-21 08:10] LABS: BASO% 0.1 % (0-3); EOS% 0.1 % (0-8); HEMATOCRIT 30.8 % (37.0-47.0); HEMOGLOBIN 9.6 g/dl (12.0-16.0); IMMATURE GRANULOCYTES 0.1 % (0.0-5.0); LYMPH% 2.4 % (15-41); MEAN CELL VOLUME 81.1 fL CALC (80.0-100.0); MEAN CORPUSCULAR HGB 25.3 pG CALC (26.0-32.0); MEAN CORPUSCULAR HGB CONC 31.2 g/dL CAL (32.0-36.0); MONO% 2.5 % (2-13); NEUT# 12.78 thou/uL (2.00-7.15); NEUT% 94.8 % (42-76); RED BLOOD COUNT 3.8 mill/uL (4.20-5.60); RED CELL DISTRI WIDTH 16.9 % (11.5-15.5)
[2023-11-21 08:21] LABS: BILIRUBIN, TOTAL 0.4 mg/dL (0.02-1.3); CREATININE 0.7 mg/dL (0.5-1.0); POTASSIUM 3.9 mmol/l (3.5-5.1)
[2023-11-21 08:25] LABS: ALBUMIN 3.3 g/dL (3.2-5.0)
[2023-11-21] MEDS ORDERED: ACETAMINOPHEN 325 MG/TAB PO ONE (09:30)
[2023-11-21] MEDS ORDERED: AZITHROMYCIN 500 MG in SODIUM CHLORIDE 0.9% 250 ML IV ONE (09:35)
[2023-11-21] MEDS ORDERED: cefTRIAXone SODIUM 2 GM in SODIUM CHLORIDE 0.9% 100 ML IV ONE (09:35)
[2023-11-21 09:50] LABS: URINE BILIRUBIN - DIPSTICK Negative (NEGATIVE); URINE BLOOD DIPSTICK Negative (NEGATIVE); URINE GLUCOSE - DIPSTICK Negative (NEGATIVE); URINE KETONE Negative (NEGATIVE); URINE LEUK ESTERASE Negative (NEGATIVE); URINE NITRITE - DIPSTICK Negative (Negative); URINE PROTEIN - DIPSTICK Negative (NEG-TRACE); URINE SPECIFIC GRAVITY 1.015
[2023-11-21 09:51] LABS: URINE COLOR Yellow
[2023-11-21] MEDS ORDERED: ACETAMINOPHEN 325 MG/TAB PO PRN (11:30)
[2023-11-21] MEDS ORDERED: SODIUM CHLORIDE 0.9% 1,000 ML IV PRN (11:30)
[2023-11-21] MEDS ORDERED: MAGNESIUM HYDROXIDE 30 ML UDC PO PRN (11:30)
[2023-11-21] MEDS ORDERED: IPRATROPIUM-Albuterol 0.5MG-2.5MG/3 ML NEB PRN (11:40)
[2023-11-21] MEDS ORDERED: AZITHROMYCIN 500 MG in SODIUM CHLORIDE 0.9% 250 ML IV SCH (12:00)
[2023-11-21] MEDS ORDERED: SODIUM CHLORIDE 0.45% 1,000 ML IV SCH (13:05)
[2023-11-21] MEDS ORDERED: CEFEPIME HYDROCHLORIDE 2 GM in SODIUM CHLORIDE 0.9% 100 ML IV SCH (14:00)
[2023-11-21] MEDS ORDERED: OXYBUTYNIN 5 MG/TAB PO SCH (15:00)
[2023-11-21] MEDS ORDERED: VANCOMYCIN HCL 500 MG in SODIUM CHLORIDE 0.9% 250 ML IV SCH (15:00)
[2023-11-21] MEDS ORDERED: SERTRALINE HCL 50 MG/TAB PO SCH (21:00)
[2023-11-21] MEDS ORDERED: traZODone HCL 50 MG/TAB PO SCH (21:00)
[2023-11-21] MEDS ORDERED: ENOXAPARIN SODIUM 40 MG/0.4 ML SYR SC SCH (21:00)
[2023-11-21] MEDS ORDERED: METOPROLOL SUCCINATE 50 MG/TAB PO SCH (21:00)
[2023-11-21] MEDS ORDERED: methylPREDNISolone Sod Succ 40 MG/ML SDV IV SCH (21:00)
[2023-11-22] VITALS (24 sets, daily range): BP systolic 116–206; BP diastolic 46–92
[2023-11-22 04:53] LABS: BASO% 0.1 % (0-3); HEMATOCRIT 26.5 % (37.0-47.0); HEMOGLOBIN 7.9 g/dl (12.0-16.0); IMMATURE GRANULOCYTES 0.2 % (0.0-5.0); LYMPH% 3.9 % (15-41); MEAN CELL VOLUME 82.3 fL CALC (80.0-100.0); MEAN CORPUSCULAR HGB 24.5 pG CALC (26.0-32.0); MEAN CORPUSCULAR HGB CONC 29.8 g/dL CAL (32.0-36.0); MONO% 1.3 % (2-13); NEUT# 16.47 thou/uL (2.00-7.15); NEUT% 94.5 % (42-76); RED BLOOD COUNT 3.22 mill/uL (4.20-5.60); RED CELL DISTRI WIDTH 17.1 % (11.5-15.5)
[2023-11-22 05:09] LABS: ALBUMIN 2.7 g/dL (3.2-5.0); BILIRUBIN, TOTAL 0.3 mg/dL (0.02-1.3); CREATININE 0.7 mg/dL (0.5-1.0); POTASSIUM 4.1 mmol/l (3.5-5.1); TOTAL PROTEIN 5.2 g/dL (6.3-8.2)
[2023-11-22 05:24] LABS: MAGNESIUM 2.1 mg/dL (1.6-2.3)
[2023-11-22] MEDS ORDERED: LOSARTAN Potassium 50 MG/TAB PO SCH (09:00)
[2023-11-22] MEDS ORDERED: CLOPIDOGREL BISULFATE 75 MG/TAB TAB PO SCH (09:00)
[2023-11-22] MEDS ORDERED: busPIRone HCL 5 MG/TAB PO SCH (09:00)
[2023-11-22] MEDS ORDERED: DONEPEZIL HCL 5 MG/TAB PO SCH (09:00)
[2023-11-22] MEDS ORDERED: PANTOPRAZOLE SODIUM Sesquihydr 40 MG/TAB PO SCH (09:00)
[2023-11-22] MEDS ORDERED: SODIUM CHLORIDE 0.9% 500 ML IV ONE (10:00)
[2023-11-22] MEDS ORDERED: ONDANSETRON HCl 4 MG/2 ML SDV IV PRN (12:45)
[2023-11-22] MEDS ORDERED: FUROSEMIDE 40 MG/4 ML SDV IV SCH (15:00)
[2023-11-22] MEDS ORDERED: SODIUM CHLORIDE 0.45% 1,000 ML IV PRN (16:20)
[2023-11-22] MEDS ORDERED: LIDOCAINE 4 % PATCH TD PRN (16:40)
[2023-11-22] MEDS ORDERED: amLODIPine BESYLATE 5 MG/TAB PO SCH (20:05)
[2023-11-22] MEDS ORDERED: hydrALAZINE HCL 20 MG/ML VIAL(1 ML) IV PRN (20:10)
[2023-11-22] MEDS ORDERED: traMADol HCL 50 MG/TAB PO SCH (21:00)
[2023-11-23] VITALS (7 sets, daily range): BP systolic 142–195; BP diastolic 63–82
[2023-11-23 06:08] LABS: BASO% 0.1 % (0-3); IMMATURE GRANULOCYTES 0.5 % (0.0-5.0); LYMPH% 4.5 % (15-41); MEAN CORPUSCULAR HGB 26.8 pG CALC (26.0-32.0); MEAN CORPUSCULAR HGB CONC 32.3 g/dL CAL (32.0-36.0); MONO% 2.5 % (2-13); NEUT# 13.02 thou/uL (2.00-7.15); NEUT% 92.4 % (42-76); RED BLOOD COUNT 4.36 mill/uL (4.20-5.60); RED CELL DISTRI WIDTH 16.2 % (11.5-15.5)
[2023-11-23 06:20] LABS: HEMATOCRIT 36.2 % (37.0-47.0); HEMOGLOBIN 11.7 g/dl (12.0-16.0)
[2023-11-23 06:37] LABS: ALBUMIN 3.1 g/dL (3.2-5.0); CREATININE 0.8 mg/dL (0.5-1.0); POTASSIUM 3.6 mmol/l (3.5-5.1); TOTAL PROTEIN 5.8 g/dL (6.3-8.2)
[2023-11-23 06:40] LABS: BILIRUBIN, TOTAL 0.5 mg/dL (0.02-1.3)
[2023-11-23] MEDS ORDERED: VANCOMYCIN HCL 1 GM in SODIUM CHLORIDE 0.9% 250 ML IV SCH (15:00)
[2023-11-24 03:32] VITALS: BP 132/54
[2023-11-24 05:00] LABS: BASO% 0.2 % (0-3); EOS% 0.3 % (0-8); HEMATOCRIT 39.3 % (37.0-47.0); HEMOGLOBIN 12.5 g/dl (12.0-16.0); IMMATURE GRANULOCYTES 0.2 % (0.0-5.0); LYMPH% 9.2 % (15-41); MEAN CELL VOLUME 83.3 fL CALC (80.0-100.0); MEAN CORPUSCULAR HGB 26.5 pG CALC (26.0-32.0); MEAN CORPUSCULAR HGB CONC 31.8 g/dL CAL (32.0-36.0); MONO% 4.8 % (2-13); NEUT# 12.1 thou/uL (2.00-7.15); NEUT% 85.3 % (42-76); RED BLOOD COUNT 4.72 mill/uL (4.20-5.60); RED CELL DISTRI WIDTH 16.4 % (11.5-15.5)
[2023-11-24 05:12] LABS: BILIRUBIN, TOTAL 0.5 mg/dL (0.02-1.3); CREATININE 0.7 mg/dL (0.5-1.0); POTASSIUM 3.3 mmol/l (3.5-5.1); TOTAL PROTEIN 5.6 g/dL (6.3-8.2)
[2023-11-24 06:37] VITALS: BP 143/68
[2023-11-24 07:00] VITALS: BP 143/68
[2023-11-24 11:13] VITALS: BP 138/59
[2023-11-24 15:04] VITALS: BP 159/60
[2023-11-24 20:00] VITALS: BP 161/66
[2023-11-25] VITALS (11 sets, daily range): BP systolic 111–186; BP diastolic 51–66
[2023-11-25 04:53] LABS: HEMATOCRIT 37.1 % (37.0-47.0); HEMOGLOBIN 11.6 g/dl (12.0-16.0); MEAN CELL VOLUME 83.7 fL CALC (80.0-100.0); MEAN CORPUSCULAR HGB 26.2 pG CALC (26.0-32.0); MEAN CORPUSCULAR HGB CONC 31.3 g/dL CAL (32.0-36.0); RED BLOOD COUNT 4.43 mill/uL (4.20-5.60); RED CELL DISTRI WIDTH 16.6 % (11.5-15.5)
[2023-11-25 05:11] LABS: ALBUMIN 2.7 g/dL (3.2-5.0); BILIRUBIN, TOTAL 0.7 mg/dL (0.02-1.3); CREATININE 0.7 mg/dL (0.5-1.0); POTASSIUM 3.5 mmol/l (3.5-5.1); TOTAL PROTEIN 5.2 g/dL (6.3-8.2)
[2023-11-26 03:12] VITALS: BP 144/55
[2023-11-26 05:11] LABS: HEMATOCRIT 37.4 % (37.0-47.0); HEMOGLOBIN 11.9 g/dl (12.0-16.0); MEAN CELL VOLUME 84.2 fL CALC (80.0-100.0); MEAN CORPUSCULAR HGB 26.8 pG CALC (26.0-32.0); MEAN CORPUSCULAR HGB CONC 31.8 g/dL CAL (32.0-36.0); RED BLOOD COUNT 4.44 mill/uL (4.20-5.60); RED CELL DISTRI WIDTH 16.6 % (11.5-15.5)
[2023-11-26 05:26] LABS: BILIRUBIN, TOTAL 0.5 mg/dL (0.02-1.3); CREATININE 0.6 mg/dL (0.5-1.0); MAGNESIUM 2.3 mg/dL (1.6-2.3); POTASSIUM 3.9 mmol/l (3.5-5.1); TOTAL PROTEIN 5.5 g/dL (6.3-8.2)
[2023-11-26 07:31] VITALS: BP 151/58
[2023-11-26 07:38] VITALS: BP 151/58
[2023-11-26] MEDS ORDERED: AMLODIPINE BESYL5 MG PO (10:30)
[2023-11-26] MEDS ORDERED: OMNICEF300 MG PO (10:31)
[2023-11-26 11:27] VITALS: BP 153/71
[2023-11-26] MEDS ORDERED: Zaleplon 5 MG/CAP PO PRN (12:05)
== END 2023-11-26 15:33 | disposition home health service (06) | DRG 871 ==
LOC: ED 07:37 → ED-I 10:10 → ED 10:57 → MS2 10:58
PROVIDERS: Family Medicine; Nurse Practitioner Family; ADMIT Internal Medicine; ATTEND Internal Medicine
PROC: 30233N1 Transfusion of Nonautologous Red Blood Cells into Peripheral Vein, Percutaneous Approach (ICD-10-PCS; principal; 2023-11-22)
PROC: 30233N1 Transfusion of Nonautologous Red Blood Cells into Peripheral Vein, Percutaneous Approach (ICD-10-PCS; 2023-11-22)
DX: A41.9 Sepsis, unspecified organism (principal); J69.0 Pneumonitis due to inhalation of food and vomit; J96.01 Acute respiratory failure with hypoxia; J44.1 Chronic obstructive pulmonary disease with (acute) exacerbation; R65.20 Severe sepsis without septic shock; K44.9 Diaphragmatic hernia without obstruction or gangrene; K21.9 Gastro-esophageal reflux disease without esophagitis; I10 Essential (primary) hypertension; E11.65 Type 2 diabetes mellitus with hyperglycemia; I25.10 Atherosclerotic heart disease of native coronary artery without angina pectoris; D63.8 Anemia in other chronic diseases classified elsewhere; F41.9 Anxiety disorder, unspecified; F32.A Depression, unspecified; F03.90 Unspecified dementia, unspecified severity, without behavioral disturbance, psychotic disturbance, mood disturbance, and anxiety; M06.9 Rheumatoid arthritis, unspecified; Z87.440 Personal history of urinary (tract) infections; Z87.01 Personal history of pneumonia (recurrent)
CPT/HCPCS: J0692; J1650; P9016

== ENCOUNTER 2023-11-30 02:07 | Emergency (ER) | payer MEDICARE ==
[~2023-11-30] VITALS: Ht 157.5 cm; Wt 55.0 kg
[2023-11-30] VITALS (25 sets, daily range): BP systolic 117–182; BP diastolic 48–79
[2023-11-30] MEDS ORDERED: SODIUM CHLORIDE 0.9% 1,000 ML IV ONE ×2 (02:30→05:20)
[2023-11-30] MEDS ORDERED: KETOROLAC TROMETHAMINE 30 MG/ML SDV IV ONE (02:30)
[2023-11-30 03:16] LABS: BASO% 0.4 % (0-3); EOS% 1.2 % (0-8); HEMATOCRIT 39.5 % (37.0-47.0); HEMOGLOBIN 12.3 g/dl (12.0-16.0); IMMATURE GRANULOCYTES 0.4 % (0.0-5.0); LYMPH% 6.5 % (15-41); MEAN CELL VOLUME 84.4 fL CALC (80.0-100.0); MEAN CORPUSCULAR HGB 26.3 pG CALC (26.0-32.0); MEAN CORPUSCULAR HGB CONC 31.1 g/dL CAL (32.0-36.0); MONO% 6.3 % (2-13); NEUT# 9.46 thou/uL (2.00-7.15); NEUT% 85.2 % (42-76); RED BLOOD COUNT 4.68 mill/uL (4.20-5.60); RED CELL DISTRI WIDTH 16.9 % (11.5-15.5)
[2023-11-30 03:24] LABS: CREATININE 0.6 mg/dL (0.5-1.0); MAGNESIUM 1.8 mg/dL (1.6-2.3); TOTAL PROTEIN 6.6 g/dL (6.3-8.2)
[2023-11-30 03:34] LABS: ACT PARTIAL THROMBO TIME 26.5 SECONDS (20.0-32.5); INTERNATIONAL NORMALIZED RATIO 1.2 RATIO (0.7-1.3)
[2023-11-30 03:43] LABS: ALBUMIN 3.8 g/dL (3.2-5.0); BILIRUBIN, TOTAL 0.8 mg/dL (0.02-1.3); POTASSIUM 4.7 mmol/l (3.5-5.1); PROTHROMBIN TIME 10.9 SECONDS (9.0-12.5)
[2023-11-30 05:57] LABS: URINE BILIRUBIN - DIPSTICK Negative (NEGATIVE); URINE BLOOD DIPSTICK Trace-lysed (NEGATIVE); URINE GLUCOSE - DIPSTICK Negative (NEGATIVE); URINE KETONE Negative (NEGATIVE); URINE LEUK ESTERASE Negative (NEGATIVE); URINE NITRITE - DIPSTICK Negative (Negative); URINE PROTEIN - DIPSTICK Negative (NEG-TRACE); URINE SPECIFIC GRAVITY 1.025; URINE UROBILINOGEN - DIPSTICK 0.2 E.U./dL (0.2)
[2023-11-30 06:10] LABS: URINE COLOR Yellow
[2023-11-30] MEDS ORDERED: AZITHROMYCIN 500 MG in SODIUM CHLORIDE 0.9% 250 ML IV ONE (08:05)
[2023-11-30] MEDS ORDERED: ZITHROMAX500 MG PO (08:05)
[2023-11-30] MEDS ORDERED: ACETAMINOPHEN 500 MG TAB PO ONE (08:05)
[2023-11-30] MEDS ORDERED: traMADol HCL 50 MG/TAB PO ONE (08:10)
== END 2023-11-30 10:19 | disposition home or self-care (01) ==
LOC: ED 02:07
PROVIDERS: Family Medicine
DX: J18.9 Pneumonia, unspecified organism (principal); J44.1 Chronic obstructive pulmonary disease with (acute) exacerbation; J44.0 Chronic obstructive pulmonary disease with (acute) lower respiratory infection; I10 Essential (primary) hypertension; E11.9 Type 2 diabetes mellitus without complications; K52.9 Noninfective gastroenteritis and colitis, unspecified; I25.10 Atherosclerotic heart disease of native coronary artery without angina pectoris; F03.90 Unspecified dementia, unspecified severity, without behavioral disturbance, psychotic disturbance, mood disturbance, and anxiety; M06.9 Rheumatoid arthritis, unspecified; F41.9 Anxiety disorder, unspecified; F32.A Depression, unspecified; Z87.440 Personal history of urinary (tract) infections; Z86.16 Personal history of COVID-19; Z20.822 Contact with and (suspected) exposure to COVID-19

== ENCOUNTER 2023-12-12 04:49 | Inpatient (IN) | payer MEDICARE ==
[~2023-12-12] VITALS: Ht 157.5 cm; Wt 44.0 kg
[2023-12-12] VITALS (9 sets, daily range): BP systolic 110–167; BP diastolic 50–83
[2023-12-12] MEDS ORDERED: Levofloxacin 750 mg Premix 150 ML IV ONE (05:05)
[2023-12-12] MEDS ORDERED: SODIUM CHLORIDE 0.9% 1,000 ML BAG IV ONE (05:05)
[2023-12-12] MEDS ORDERED: ACETAMINOPHEN 325 MG/TAB PO ONE (05:10)
[2023-12-12] MEDS ORDERED: KETOROLAC TROMETHAMINE 30 MG/ML SDV IV ONE (05:10)
[2023-12-12 05:49] LABS: BASO% 0.1 % (0-3); EOS% 0.2 % (0-8); IMMATURE GRANULOCYTES 0.1 % (0.0-5.0); LYMPH% 3.8 % (15-41); MEAN CELL VOLUME 82.3 fL CALC (80.0-100.0); MEAN CORPUSCULAR HGB CONC 31.6 g/dL CAL (32.0-36.0); MONO% 4.4 % (2-13); NEUT# 10.7 thou/uL (2.00-7.15); NEUT% 91.4 % (42-76); RED BLOOD COUNT 3.96 mill/uL (4.20-5.60); RED CELL DISTRI WIDTH 16.8 % (11.5-15.5)
[2023-12-12 06:06] LABS: ALBUMIN 3.3 g/dL (3.2-5.0); BILIRUBIN, TOTAL 0.5 mg/dL (0.02-1.3); CREATININE 0.6 mg/dL (0.5-1.0); POTASSIUM 3.8 mmol/l (3.5-5.1)
[2023-12-12 06:09] LABS: HEMATOCRIT 32.6 % (37.0-47.0); HEMOGLOBIN 10.3 g/dl (12.0-16.0)
[2023-12-12 06:43] LABS: URINE BILIRUBIN - DIPSTICK Negative (NEGATIVE); URINE BLOOD DIPSTICK Negative (NEGATIVE); URINE GLUCOSE - DIPSTICK Negative (NEGATIVE); URINE KETONE Negative (NEGATIVE); URINE LEUK ESTERASE Negative (NEGATIVE); URINE NITRITE - DIPSTICK Negative (Negative); URINE PH 5.5 (4.5-8.0); URINE PROTEIN - DIPSTICK Negative (NEG-TRACE); URINE SPECIFIC GRAVITY 1.025; URINE UROBILINOGEN - DIPSTICK 0.2 E.U./dL (0.2)
[2023-12-12 06:45] LABS: URINE COLOR Yellow
[2023-12-12] MEDS ORDERED: IBUPROFEN 800 MG/TAB PO PRN (06:55)
[2023-12-12] MEDS ORDERED: ALUM & MAG HYDROX-SIMETHICONE 30 ML PO PRN (06:55)
[2023-12-12] MEDS ORDERED: ONDANSETRON HCl 4 MG/2 ML SDV IV PRN (06:55)
[2023-12-12] MEDS ORDERED: FAMOTIDINE 10MG/ML 2ML SDV IV PRN (06:55)
[2023-12-12] MEDS ORDERED: ACETAMINOPHEN 325 MG/TAB PO PRN (06:55)
[2023-12-12] MEDS ORDERED: ENOXAPARIN SODIUM 40 MG/0.4 ML SYR SC ONE (06:55)
[2023-12-12] MEDS ORDERED: ONDANSETRON 4 MG/TAB ODT PO PRN (06:55)
[2023-12-12] MEDS ORDERED: SODIUM CHLORIDE 0.9% 1,000 ML IV PRN (06:55)
[2023-12-12] MEDS ORDERED: Polyethylene Glycol 3350 17 GM/PKT PO PRN (06:55)
[2023-12-12] MEDS ORDERED: IPRATROPIUM-Albuterol 0.5MG-2.5MG/3 ML NEB PRN (07:40)
[2023-12-12] MEDS ORDERED: ALBUTEROL SULFATE 8 GM INH IN PRN (07:40)
[2023-12-12] MEDS ORDERED: busPIRone HCL 5 MG/TAB PO SCH (09:00)
[2023-12-12] MEDS ORDERED: METOPROLOL SUCCINATE 50 MG/TAB PO SCH (09:00)
[2023-12-12] MEDS ORDERED: LOSARTAN Potassium 50 MG/TAB PO SCH (09:00)
[2023-12-12] MEDS ORDERED: PANTOPRAZOLE SODIUM Sesquihydr 40 MG/TAB PO SCH (09:00)
[2023-12-12] MEDS ORDERED: ACYCLOVIR 400 MG TAB PO SCH (09:00)
[2023-12-12] MEDS ORDERED: DONEPEZIL HCL 5 MG/TAB PO SCH (09:00)
[2023-12-12] MEDS ORDERED: SERTRALINE HCL 50 MG/TAB PO SCH (09:00)
[2023-12-12] MEDS ORDERED: CLOPIDOGREL BISULFATE 75 MG/TAB TAB PO SCH (09:00)
[2023-12-12] MEDS ORDERED: amLODIPine BESYLATE 5 MG/TAB PO SCH (09:00)
[2023-12-12] MEDS ORDERED: traMADol HCL 50 MG/TAB PO PRN (10:40)
[2023-12-12] MEDS ORDERED: KETOROLAC TROMETHAMINE 30 MG/ML SDV IV SCH (12:00)
[2023-12-12] MEDS ORDERED: KETOROLAC TROMETHAMINE 15 MG/ML SDV IV PRN (15:40)
[2023-12-12] MEDS ORDERED: traZODone HCL 50 MG/TAB PO SCH (21:00)
[2023-12-13 04:31] VITALS: BP 137/56
[2023-12-13 06:03] LABS: BASO% 0.3 % (0-3); EOS% 1.3 % (0-8); HEMATOCRIT 29.3 % (37.0-47.0); HEMOGLOBIN 9.4 g/dl (12.0-16.0); IMMATURE GRANULOCYTES 0.1 % (0.0-5.0); LYMPH% 10.9 % (15-41); MEAN CELL VOLUME 83.2 fL CALC (80.0-100.0); MEAN CORPUSCULAR HGB 26.7 pG CALC (26.0-32.0); MEAN CORPUSCULAR HGB CONC 32.1 g/dL CAL (32.0-36.0); NEUT# 6.5 thou/uL (2.00-7.15); NEUT% 81.4 % (42-76); RED BLOOD COUNT 3.52 mill/uL (4.20-5.60); RED CELL DISTRI WIDTH 16.9 % (11.5-15.5)
[2023-12-13 06:12] LABS: BILIRUBIN, TOTAL 0.5 mg/dL (0.02-1.3); CREATININE 0.6 mg/dL (0.5-1.0); MAGNESIUM 1.6 mg/dL (1.6-2.3); POTASSIUM 3.7 mmol/l (3.5-5.1); TOTAL PROTEIN 4.8 g/dL (6.3-8.2)
[2023-12-13 06:15] LABS: ALBUMIN 2.4 g/dL (3.2-5.0)
[2023-12-13 06:56] VITALS: BP 150/60
[2023-12-13] MEDS ORDERED: Levofloxacin 750 mg Premix 150 ML IV SCH (08:00)
[2023-12-13] MEDS ORDERED: VANCOMYCIN HCL 500 MG in SODIUM CHLORIDE 0.9% 250 ML IV SCH (12:00)
[2023-12-13 16:08] VITALS: BP 118/53
[2023-12-13 19:15] VITALS: BP 126/60
[2023-12-14 04:23] VITALS: BP 146/55
[2023-12-14 05:34] LABS: BASO% 0.3 % (0-3); EOS% 1.9 % (0-8); HEMATOCRIT 29.4 % (37.0-47.0); HEMOGLOBIN 9.5 g/dl (12.0-16.0); IMMATURE GRANULOCYTES 0.2 % (0.0-5.0); LYMPH% 11.3 % (15-41); MEAN CELL VOLUME 82.4 fL CALC (80.0-100.0); MEAN CORPUSCULAR HGB 26.6 pG CALC (26.0-32.0); MEAN CORPUSCULAR HGB CONC 32.3 g/dL CAL (32.0-36.0); MONO% 5.8 % (2-13); NEUT# 4.71 thou/uL (2.00-7.15); NEUT% 80.5 % (42-76); RED BLOOD COUNT 3.57 mill/uL (4.20-5.60); RED CELL DISTRI WIDTH 16.7 % (11.5-15.5)
[2023-12-14 05:50] LABS: ALBUMIN 2.3 g/dL (3.2-5.0); BILIRUBIN, TOTAL 0.3 mg/dL (0.02-1.3); CREATININE 0.6 mg/dL (0.5-1.0); MAGNESIUM 1.7 mg/dL (1.6-2.3); POTASSIUM 3.4 mmol/l (3.5-5.1); TOTAL PROTEIN 4.6 g/dL (6.3-8.2)
[2023-12-14 06:33] VITALS: BP 147/56
[2023-12-14 07:45] VITALS: BP 147/56
[2023-12-14] MEDS ORDERED: POTASSIUM CHLORIDE 20 MEQ/TAB PO SCH (08:00)
[2023-12-14 14:38] VITALS: BP 154/57
[2023-12-14 14:50] VITALS: BP 154/57
[2023-12-14 18:37] VITALS: BP 156/64
[2023-12-14] MEDS ORDERED: hydrALAZINE HCL 20 MG/ML VIAL(1 ML) IV PRN (18:50)
[2023-12-15 04:29] VITALS: BP 152/62
[2023-12-15 05:17] LABS: BASO% 0.4 % (0-3); EOS% 3.1 % (0-8); HEMATOCRIT 28.6 % (37.0-47.0); HEMOGLOBIN 9.2 g/dl (12.0-16.0); IMMATURE GRANULOCYTES 0.4 % (0.0-5.0); LYMPH% 16.3 % (15-41); MEAN CELL VOLUME 82.2 fL CALC (80.0-100.0); MEAN CORPUSCULAR HGB 26.4 pG CALC (26.0-32.0); MEAN CORPUSCULAR HGB CONC 32.2 g/dL CAL (32.0-36.0); MONO% 6.9 % (2-13); NEUT# 3.48 thou/uL (2.00-7.15); NEUT% 72.9 % (42-76); RED BLOOD COUNT 3.48 mill/uL (4.20-5.60); RED CELL DISTRI WIDTH 16.6 % (11.5-15.5)
[2023-12-15 05:27] LABS: ALBUMIN 2.4 g/dL (3.2-5.0); BILIRUBIN, TOTAL 0.3 mg/dL (0.02-1.3); CREATININE 0.5 mg/dL (0.5-1.0); MAGNESIUM 1.6 mg/dL (1.6-2.3); POTASSIUM 3.5 mmol/l (3.5-5.1); TOTAL PROTEIN 4.8 g/dL (6.3-8.2)
[2023-12-15 07:08] VITALS: BP 170/66
[2023-12-15] MEDS ORDERED: LIDOCAINE 4 % PATCH TD SCH (10:00)
[2023-12-15] MEDS ORDERED: MAGNESIUM HYDROXIDE 30 ML UDC PO SCH (10:00)
[2023-12-15] MEDS ORDERED: DiphenhydrAMINE HCL 25 MG CPLT PO SCH (10:00)
[2023-12-15] MEDS ORDERED: CALCIUM CARBONATE 750 MG/TAB PO PRN (15:00)
[2023-12-15 16:02] VITALS: BP 185/73
[2023-12-15 18:30] VITALS: BP 141/79
[2023-12-15 19:16] VITALS: BP 163/82
[2023-12-16 00:16] VITALS: BP 152/63
[2023-12-16 05:06] VITALS: BP 142/79
[2023-12-16 06:50] VITALS: BP 154/71
[2023-12-16 07:17] LABS: BASO% 0.4 % (0-3); EOS% 2.8 % (0-8); HEMATOCRIT 30.9 % (37.0-47.0); HEMOGLOBIN 9.8 g/dl (12.0-16.0); IMMATURE GRANULOCYTES 0.4 % (0.0-5.0); LYMPH% 15.2 % (15-41); MEAN CELL VOLUME 81.3 fL CALC (80.0-100.0); MEAN CORPUSCULAR HGB 25.8 pG CALC (26.0-32.0); MEAN CORPUSCULAR HGB CONC 31.7 g/dL CAL (32.0-36.0); MONO% 7.6 % (2-13); NEUT# 3.69 thou/uL (2.00-7.15); NEUT% 73.6 % (42-76); RED BLOOD COUNT 3.8 mill/uL (4.20-5.60); RED CELL DISTRI WIDTH 16.6 % (11.5-15.5)
[2023-12-16 07:33] LABS: ALBUMIN 2.4 g/dL (3.2-5.0); BILIRUBIN, TOTAL 0.3 mg/dL (0.02-1.3); CREATININE 0.5 mg/dL (0.5-1.0); MAGNESIUM 1.8 mg/dL (1.6-2.3); POTASSIUM 3.3 mmol/l (3.5-5.1); TOTAL PROTEIN 4.8 g/dL (6.3-8.2)
[2023-12-16 10:26] VITALS: BP 155/66
[2023-12-16] MEDS ORDERED: VANCOMYCIN HCL 500 MG in SODIUM CHLORIDE 0.9% 250 ML IV SCH (14:00)
[2023-12-16 19:39] VITALS: BP 169/72
[2023-12-16 20:19] VITALS: BP 169/72
[2023-12-17] VITALS (9 sets, daily range): BP systolic 130–176; BP diastolic 60–75
[2023-12-17 05:15] LABS: BASO% 0.6 % (0-3); EOS% 2.8 % (0-8); HEMOGLOBIN 10.4 g/dl (12.0-16.0); IMMATURE GRANULOCYTES 0.6 % (0.0-5.0); LYMPH% 15.2 % (15-41); MEAN CELL VOLUME 80.8 fL CALC (80.0-100.0); MEAN CORPUSCULAR HGB 26.3 pG CALC (26.0-32.0); MEAN CORPUSCULAR HGB CONC 32.5 g/dL CAL (32.0-36.0); MONO% 8.8 % (2-13); NEUT# 3.36 thou/uL (2.00-7.15); RED BLOOD COUNT 3.96 mill/uL (4.20-5.60); RED CELL DISTRI WIDTH 16.6 % (11.5-15.5)
[2023-12-17 05:50] LABS: ALBUMIN 2.7 g/dL (3.2-5.0); BILIRUBIN, TOTAL 0.3 mg/dL (0.02-1.3); CREATININE 0.6 mg/dL (0.5-1.0); MAGNESIUM 1.9 mg/dL (1.6-2.3); POTASSIUM 3.1 mmol/l (3.5-5.1); TOTAL PROTEIN 5.2 g/dL (6.3-8.2)
[2023-12-17] MEDS ORDERED: methylPREDNISolone Sod Succ 40 MG/ML SDV IV SCH (09:00)
[2023-12-17] MEDS ORDERED: POTASSIUM CHLORIDE 20 MEQ/PKT POWDER PO SCH (09:30)
[2023-12-17] MEDS ORDERED: VANCOMYCIN HCL 1 GM in SODIUM CHLORIDE 0.9% 250 ML IV SCH (14:00)
[2023-12-17] MEDS ORDERED: ARTIFICIAL TEARS SOLUTION 15 ML/BTL OU PRN (16:05)
[2023-12-18 03:41] VITALS: BP 180/83
[2023-12-18 04:56] VITALS: BP 147/64
[2023-12-18 06:29] LABS: BASO% 0.2 % (0-3); EOS% 0.2 % (0-8); HEMATOCRIT 32.4 % (37.0-47.0); HEMOGLOBIN 10.6 g/dl (12.0-16.0); LYMPH% 10.5 % (15-41); MEAN CELL VOLUME 80.6 fL CALC (80.0-100.0); MEAN CORPUSCULAR HGB 26.4 pG CALC (26.0-32.0); MEAN CORPUSCULAR HGB CONC 32.7 g/dL CAL (32.0-36.0); MONO% 3.2 % (2-13); NEUT# 4.94 thou/uL (2.00-7.15); NEUT% 83.9 % (42-76); RED BLOOD COUNT 4.02 mill/uL (4.20-5.60); RED CELL DISTRI WIDTH 16.3 % (11.5-15.5)
[2023-12-18 06:54] LABS: ALBUMIN 2.9 g/dL (3.2-5.0); BILIRUBIN, TOTAL 0.3 mg/dL (0.02-1.3); CREATININE 0.7 mg/dL (0.5-1.0); TOTAL PROTEIN 5.4 g/dL (6.3-8.2)
[2023-12-18 07:19] VITALS: BP 166/69
[2023-12-18] MEDS ORDERED: PREDNISONE10 MG PO (08:46)
[2023-12-18 11:01] VITALS: BP 158/54
== END 2023-12-18 11:38 | disposition home health service (06) | DRG 549 ==
LOC: ED 04:49 → ED-I 06:23 → ED 06:54 → MS2 06:55
PROVIDERS: Family Medicine; Nurse Practitioner Family; ADMIT Student in an Organized Health Care Education/Training Program; ATTEND Student in an Organized Health Care Education/Training Program
PROC: 0S9D3ZX Drainage of Left Knee Joint, Percutaneous Approach, Diagnostic (ICD-10-PCS; principal; 2023-12-13)
DX: M00.9 Pyogenic arthritis, unspecified (principal); J44.0 Chronic obstructive pulmonary disease with (acute) lower respiratory infection; J44.1 Chronic obstructive pulmonary disease with (acute) exacerbation; M06.862 Other specified rheumatoid arthritis, left knee; J20.9 Acute bronchitis, unspecified; I10 Essential (primary) hypertension; E11.9 Type 2 diabetes mellitus without complications; I25.10 Atherosclerotic heart disease of native coronary artery without angina pectoris; F03.A0 Unspecified dementia, mild, without behavioral disturbance, psychotic disturbance, mood disturbance, and anxiety; F32.A Depression, unspecified; F41.9 Anxiety disorder, unspecified; K21.9 Gastro-esophageal reflux disease without esophagitis; M19.90 Unspecified osteoarthritis, unspecified site; I25.2 Old myocardial infarction; Z87.440 Personal history of urinary (tract) infections; Z87.442 Personal history of urinary calculi; Z87.01 Personal history of pneumonia (recurrent); Z20.822 Contact with and (suspected) exposure to COVID-19

== ENCOUNTER 2024-03-14 07:09 | Inpatient (IN) | payer MEDICARE ==
[~2024-03-14] VITALS: Ht 157.5 cm; Wt 40.8 kg
[2024-03-14] MEDS ORDERED: AZTREONAM 1 GM in SODIUM CHLORIDE 0.9% 50 ML IV ONE (07:20)
[2024-03-14] MEDS ORDERED: ACETAMINOPHEN 500 MG TAB PO ONE (07:25)
[2024-03-14 07:57] LABS: BASO% 0.2 % (0-3); EOS% 0.5 % (0-8); HEMATOCRIT 35.3 % (37.0-47.0); HEMOGLOBIN 10.9 g/dl (12.0-16.0); IMMATURE GRANULOCYTES 0.2 % (0.0-5.0); LYMPH% 6.8 % (15-41); MEAN CELL VOLUME 84.7 fL CALC (80.0-100.0); MEAN CORPUSCULAR HGB 26.1 pG CALC (26.0-32.0); MEAN CORPUSCULAR HGB CONC 30.9 g/dL CAL (32.0-36.0); MONO% 3.7 % (2-13); NEUT# 9.29 thou/uL (2.00-7.15); NEUT% 88.6 % (42-76); RED BLOOD COUNT 4.17 mill/uL (4.20-5.60); RED CELL DISTRI WIDTH 16.4 % (11.5-15.5)
[2024-03-14 08:00] LABS: URINE BILIRUBIN - DIPSTICK Negative (NEGATIVE); URINE BLOOD DIPSTICK Negative (NEGATIVE); URINE GLUCOSE - DIPSTICK Negative (NEGATIVE); URINE KETONE Negative (NEGATIVE); URINE LEUK ESTERASE Negative (NEGATIVE); URINE NITRITE - DIPSTICK Negative (Negative); URINE PH 5.5 (4.5-8.0); URINE PROTEIN - DIPSTICK Negative (NEG-TRACE); URINE UROBILINOGEN - DIPSTICK 0.2 E.U./dL (0.2)
[2024-03-14 08:01] LABS: URINE COLOR Yellow
[2024-03-14 08:18] LABS: ALKALINE PHOSPHATASE 74 u/l (38-126); ANION GAP 15 (6-22 (CALC)); BUN 15 mg/dL (8-23); BUN/CREATININE RATIO 22 (12-20 (CALC)); CARBON DIOXIDE 26 mmol/l (22-30); CHLORIDE 103 mmol/l (95-108); CREATININE 0.7 mg/dL (0.5-1.0); ESTIMATED GFR 90 ML/MIN (>=90 (CALC)); LIPASE 28 u/l (23-300); POTASSIUM 4.2 mmol/l (3.5-5.1); SGOT/AST 27 u/l (9-36); SODIUM 140 mmol/l (137-146); TOTAL PROTEIN 6.4 g/dL (6.3-8.2)
[2024-03-14 08:21] LABS: ALBUMIN 3.6 g/dL (3.2-5.0); BILIRUBIN, TOTAL 0.6 mg/dL (0.02-1.3)
[2024-03-14 12:00] VITALS: BP 104/58
[2024-03-14] MEDS ORDERED: MAGNESIUM HYDROXIDE 30 ML UDC PO PRN (12:05)
[2024-03-14] MEDS ORDERED: SODIUM CHLORIDE 0.9% 1,000 ML IV PRN (12:05)
[2024-03-14] MEDS ORDERED: ACETAMINOPHEN 325 MG/TAB PO PRN (12:05)
[2024-03-14] MEDS ORDERED: CEFEPIME HYDROCHLORIDE 2 GM in SODIUM CHLORIDE 0.9% 100 ML IV SCH ×2 (13:00→15:00)
[2024-03-14] MEDS ORDERED: AZITHROMYCIN 500 MG in SODIUM CHLORIDE 0.9% 250 ML IV SCH (14:00)
[2024-03-14 14:40] VITALS: BP 106/52
[2024-03-14] MEDS ORDERED: DONEPEZIL HYDRO10 MG PO (15:14)
[2024-03-14] MEDS ORDERED: OXYBUTYNIN CHLOR5 M2 PO (15:14)
[2024-03-14] MEDS ORDERED: ZOFRAN4 MG/TAB PO (15:15)
[2024-03-14] MEDS ORDERED: TRAZODONE100 MG PO (15:17)
[2024-03-14] MEDS ORDERED: FUROSEMIDE20 MG PO (15:17)
[2024-03-14] MEDS ORDERED: KLOR-CON M2020 MEQ PO (15:19)
[2024-03-14] MEDS ORDERED: ACYCLOVIR800 MG PO (15:19)
[2024-03-14 18:41] VITALS: BP 135/61
[2024-03-14] MEDS ORDERED: OMEPRAZOLE DR40 MG (19:32)
[2024-03-14] MEDS ORDERED: AMLODIPINE BESY10 MG PO (19:38)
[2024-03-14] MEDS ORDERED: hydrALAZINE HCL 20 MG/ML VIAL(1 ML) IV PRN (20:15)
[2024-03-14] MEDS ORDERED: ONDANSETRON 4 MG/TAB ODT PO PRN (20:20)
[2024-03-14] MEDS ORDERED: traMADol HCL 50 MG/TAB PO PRN (20:20)
[2024-03-14] MEDS ORDERED: ENOXAPARIN SODIUM 40 MG/0.4 ML SYR SC SCH (21:00)
[2024-03-14] MEDS ORDERED: OXYBUTYNIN 5 MG/TAB PO SCH (21:00)
[2024-03-14] MEDS ORDERED: PANTOPRAZOLE SODIUM Sesquihydr 40 MG/TAB PO SCH (21:00)
[2024-03-14] MEDS ORDERED: traZODone HCL 50 MG/TAB PO SCH (21:50)
[2024-03-15 03:33] VITALS: BP 128/54
[2024-03-15 07:49] VITALS: BP 122/53
[2024-03-15 11:06] VITALS: BP 107/48
[2024-03-15 16:25] VITALS: BP 108/53
[2024-03-15] MEDS ORDERED: METOPROLOL SUCCINATE 50 MG/TAB PO SCH (17:26)
[2024-03-15] MEDS ORDERED: amLODIPine BESYLATE 5 MG/TAB PO SCH (17:27)
[2024-03-15] MEDS ORDERED: busPIRone HCL 5 MG/TAB PO SCH (17:27)
[2024-03-15 18:49] VITALS: BP 122/57
[2024-03-15] MEDS ORDERED: SERTRALINE HCL 50 MG/TAB PO SCH (21:00)
[2024-03-15] MEDS ORDERED: ACYCLOVIR 400 MG TAB PO SCH (21:00)
[2024-03-15] MEDS ORDERED: DONEPEZIL HCL 5 MG/TAB PO SCH (21:00)
[2024-03-15] MEDS ORDERED: traMADol HCL 50 MG/TAB PO SCH (22:00)
[2024-03-16 00:08] VITALS: BP 101/56
[2024-03-16 04:25] VITALS: BP 144/74
[2024-03-16 05:19] LABS: BASO% 0.4 % (0-3); EOS% 2.2 % (0-8); IMMATURE GRANULOCYTES 0.2 % (0.0-5.0); LYMPH% 12.9 % (15-41); MEAN CELL VOLUME 85.2 fL CALC (80.0-100.0); MEAN CORPUSCULAR HGB 26.2 pG CALC (26.0-32.0); MEAN CORPUSCULAR HGB CONC 30.8 g/dL CAL (32.0-36.0); MONO% 7.1 % (2-13); NEUT# 3.78 thou/uL (2.00-7.15); NEUT% 77.2 % (42-76); RED BLOOD COUNT 3.24 mill/uL (4.20-5.60); RED CELL DISTRI WIDTH 16.3 % (11.5-15.5)
[2024-03-16 05:25] LABS: HEMATOCRIT 27.6 % (37.0-47.0); HEMOGLOBIN 8.5 g/dl (12.0-16.0)
[2024-03-16 05:31] LABS: BILIRUBIN, TOTAL 0.4 mg/dL (0.02-1.3); CREATININE 0.7 mg/dL (0.5-1.0); MAGNESIUM 1.9 mg/dL (1.6-2.3); POTASSIUM 3.5 mmol/l (3.5-5.1); TOTAL PROTEIN 5.2 g/dL (6.3-8.2)
[2024-03-16 05:35] LABS: ALBUMIN 2.6 g/dL (3.2-5.0)
[2024-03-16 07:29] VITALS: BP 148/70
[2024-03-16 11:23] VITALS: BP 135/61
[2024-03-16] MEDS ORDERED: cefTRIAXone SODIUM 2 GM in SODIUM CHLORIDE 0.9% 100 ML IV SCH (15:00)
[2024-03-16 15:32] VITALS: BP 122/59
[2024-03-16 18:06] VITALS: BP 156/69
[2024-03-17 00:39] VITALS: BP 157/57
[2024-03-17 04:40] VITALS: BP 135/70
[2024-03-17 06:01] LABS: BASO% 0.5 % (0-3); EOS% 2.5 % (0-8); HEMATOCRIT 25.4 % (37.0-47.0); IMMATURE GRANULOCYTES 0.2 % (0.0-5.0); LYMPH% 17.2 % (15-41); MEAN CELL VOLUME 84.1 fL CALC (80.0-100.0); MEAN CORPUSCULAR HGB 26.5 pG CALC (26.0-32.0); MEAN CORPUSCULAR HGB CONC 31.5 g/dL CAL (32.0-36.0); MONO% 6.1 % (2-13); NEUT# 3.26 thou/uL (2.00-7.15); NEUT% 73.5 % (42-76); RED BLOOD COUNT 3.02 mill/uL (4.20-5.60); RED CELL DISTRI WIDTH 15.9 % (11.5-15.5)
[2024-03-17 06:07] LABS: ALBUMIN 2.5 g/dL (3.2-5.0); BILIRUBIN, TOTAL 0.3 mg/dL (0.02-1.3); CREATININE 0.6 mg/dL (0.5-1.0); POTASSIUM 3.3 mmol/l (3.5-5.1)
[2024-03-17] MEDS ORDERED: AZITHROMYCIN500 MG PO (10:06)
[2024-03-17 10:18] VITALS: BP 146/70
== END 2024-03-17 13:29 | disposition home or self-care (01) | DRG 195 ==
LOC: ED 07:09 → ED-I 09:13 → ED 09:48 → MS2 09:49
PROVIDERS: Family Medicine; Internal Medicine; ADMIT Internal Medicine; ATTEND Internal Medicine
DX: J18.9 Pneumonia, unspecified organism (principal); R09.02 Hypoxemia; I10 Essential (primary) hypertension; E11.9 Type 2 diabetes mellitus without complications; I25.10 Atherosclerotic heart disease of native coronary artery without angina pectoris; F03.90 Unspecified dementia, unspecified severity, without behavioral disturbance, psychotic disturbance, mood disturbance, and anxiety; M06.9 Rheumatoid arthritis, unspecified; D64.9 Anemia, unspecified; J45.909 Unspecified asthma, uncomplicated; F41.9 Anxiety disorder, unspecified; F32.A Depression, unspecified; A60.00 Herpesviral infection of urogenital system, unspecified; K21.9 Gastro-esophageal reflux disease without esophagitis; Z87.440 Personal history of urinary (tract) infections; Z20.822 Contact with and (suspected) exposure to COVID-19
CPT/HCPCS: J0456; J0457; J0692; J0696; J1650